=== PATIENT | female | born 1945 | race Caucasian/White ===

== ENCOUNTER 2019-11-06 12:45 | Outpatient (CLI) | payer MEDICARE, OTHER, SELFPAY ==
--- NOTE | ~2019-11-06 | MMUS_ITS ---
EXAMINATION: MM diagnostic anette BI w prem, US breast RT limited HISTORY: Right breast lump TECHNIQUE: Bilateral ML, MLO and craniocaudal 3-D tomosynthesis images were performed and synthetic 2 -D images were generated. CAD analysis was submitted and interpreted. High resolution upper outer carol drant right breast ultrasound was performed. COMPARISON: 02/27/2019 and 09/05/2018 diagnostic right digital mammogram examinations 08/20/2018, 07/06/2016 bilateral digital screening mammogram examinations BREAST PARENCHYMAL COMPOSITION: There are scattered areas of fibroglandular density. FINDINGS: MAMMOGRAPHIC FINDINGS: Bilateral benign-appearing calcifications are again noted. There is chronic stable mild fibroglandula r asymmetry. No interval suspicious mass or architectural distortion is detected. Given the clinical complaint of upper outer quadrant right breast lump, upper outer quadrant right breast ultrasound exa mination was performed. ULTRASOUND: 10:00 4 cm from nipple: There is an approximately 8 mm irregular hypoechoic apparent mass with seed buyer ior shadowing; ultrasound-guided biopsy is recommended. Immediately contiguous with or part of this 8 mm hypoechoic irregular area with shadowing is a more c ircumscribed oval heterogeneous mildly hypoechoic solid mass of approximately 12 x 16.5 mm dimension with an irregular anteriorly projecting tentacle of up to 7 mm length and 2.5 mm approximate maximal width. Ultrasound-guided biopsy of this area is recommended as well; biopsy sampling including the te ntacle is recommended. IMPRESSION: 1. Suspicious mass(es) of right breast at 10:00 4 cm from nipple 2. Ultrasound-guided biopsy of right 10:00 mass(es) is recommended BI-RADS category 4, suspicious findings. Dr. Morales telephoned Dr. Hernandez with the findings and biopsy recommendation on 11/06/2019 at 1424 hours. Reviewed, dictated and finalized at location A. IMPRESSION: 1. Suspicious mass(es) of right breast at 10:00 4 cm from nipple 2. Ultrasound-guided biopsy of right 10:00 mass(es) is recommended BI-RADS category 4, suspicious findings. Dr. Morales telephoned Dr. Hernandez with the findings and biopsy recommendation on 10/25 at 1424 hours.
== END 2019-11-06 12:46 | disposition home or self-care (01) ==
LOC: ANHIMG 12:47
PROVIDERS: PCP Family Medicine; Visit Provider Family Medicine
DX: N63.10 Unspecified lump in the right breast, unspecified quadrant (principal); R92.8 Other abnormal and inconclusive findings on diagnostic imaging of breast
CPT/HCPCS: 76642; 77062; 77066; G0279

== ENCOUNTER 2020-03-22 10:29 | Outpatient (CLI) | payer MEDICARE, OTHER, SELFPAY ==
[2020-03-22 10:43] LABS: Basophils Absolute Auto 0.1 K/mm3 (0.0-0.1); Basophils Percent Auto 0.8 % (0.2-1.2); Eosinophils Absolute Auto 0.2 K/mm3 (0-0.3); Eosinophils Percent Auto 2.1 % (0-4.4); Hematocrit 49.2 % (37.0-47.0); Immature Granulocyte Absolute 0.04 K/mm3 (0.00-0.031); Immature Granulocyte Percent A 0.5 % (0-0.5); Lymphocytes Absolute Auto 1.23 K/mm3 (0.9-3.2); Lymphocytes Percent Auto 14.5 % (18.3-44.2); Mean Corpuscular HGB Conc 32.5 g/dl (32-36); Mean Corpuscular Hemoglobin 30.9 pg (26-34); Mean Platelet Volume 11.8 fl (7.4-10.4); Monocytes Absolute Auto 0.7 K/mm3 (0.1-0.6); Monocytes Percent Auto 8.3 % (2.6-8.5); Neutrophils Absolute Auto 6.3 K/mm3 (1.3-6.7); Neutrophils Percent Auto 73.8 % (45.5-73.1); Platelet Count Result 212 k/mm3 (150-375); Red Blood Count 5.18 M/mm3 (4.2-5.4); Red Cell Distribution Width 15.7 % (11.5-14.5); White Blood Count 8.5 K/mm3 (4.5-10.0)
[2020-03-22 10:47] LABS: Blood Urea Nitrogen 26 mg/dL (8-26); Carbon Dioxide 27 mmol/L (22-30); Chloride 102 mmol/L (98-109); Estimated Glomerular Filt Rate > 60; Glucose 95 mg/dL (70-105); Potassium 4.4 mmol/L (3.5-4.9); Sodium 143 mmol/L (138-146)
[2020-03-22 11:30] LABS: Alanine Aminotransferase 17 U/L (4-35); Albumin Level 4.2 g/dL (3.5-5.1); Alkaline Phosphatase 124 U/L (38-126); Anion Gap 8 mmol/L (8-16); Aspartate Amino Transferase 32 U/L (14-36); Bilirubin,Total 1.7 mg/dL (0.2-1.3); Blood Urea Nitrogen 27 mg/dL (7-17); Calcium 9.6 mg/dL (8.4-10.2); Carbon Dioxide 34 mmol/L (22-30); Chloride 102 mmol/L (98-107); Estimated Glomerular Filt Rate > 60; Glucose 99 mg/dL (65-105); Potassium 4.3 mmol/L (3.4-5.0); Sodium 144 mmol/L (137-145)
[2020-03-28 16:08] LABS: CALR Exon 9 Mutation Not Detected (Not Detected); CSF3R Exon 14/17 Mutation Not Detected (Not Detected); JAK2 Exon 12 Mutation Not Detected (Not Detected); JAK2 V617F Mutation Not Detected (Not Detected); MPL Exon 10 Mutation Not Detected (Not Detected); Specimen Source Blood
== END 2020-03-22 10:30 | disposition home or self-care (01) ==
PROVIDERS: PCP Family Medicine; Visit Provider Internal Medicine Hematology & Oncology
DX: D75.1 Secondary polycythemia (principal); C50.411 Malignant neoplasm of upper-outer quadrant of right female breast; Z17.0 Estrogen receptor positive status [ER+]
CPT/HCPCS: 36415; 80048; 80053; 81219; 81270; 81402; 81403; 81479; 85025

== ENCOUNTER 2020-06-15 09:58 | Outpatient (CLI) | payer MEDICARE, OTHER, SELFPAY ==
[2020-06-15 10:13] LABS: Basophils Absolute Auto 0.1 K/mm3 (0.0-0.1); Basophils Percent Auto 1.2 % (0.2-1.2); Eosinophils Absolute Auto 0.3 K/mm3 (0-0.3); Eosinophils Percent Auto 3.5 % (0-4.4); Hematocrit 45.2 % (37.0-47.0); Hemoglobin 14.7 g/dL (12.0-15.0); Immature Granulocyte Absolute 0.04 K/mm3 (0.00-0.031); Immature Granulocyte Percent A 0.5 % (0-0.5); Lymphocytes Absolute Auto 1.78 K/mm3 (0.9-3.2); Lymphocytes Percent Auto 22.8 % (18.3-44.2); Mean Corpuscular HGB Conc 32.5 g/dl (32-36); Mean Corpuscular Hemoglobin 31.3 pg (26-34); Mean Corpuscular Volume 96.4 fl (80-100); Mean Platelet Volume 12.2 fl (7.4-10.4); Monocytes Absolute Auto 0.7 K/mm3 (0.1-0.6); Monocytes Percent Auto 8.8 % (2.6-8.5); Neutrophils Absolute Auto 4.9 K/mm3 (1.3-6.7); Neutrophils Percent Auto 63.2 % (45.5-73.1); Platelet Count Result 221 k/mm3 (150-375); Red Blood Count 4.69 M/mm3 (4.2-5.4); Red Cell Distribution Width 14.8 % (11.5-14.5); White Blood Count 7.8 K/mm3 (4.5-10.0)
[2020-06-15 12:32] LABS: Alanine Aminotransferase 24 U/L (4-35); Albumin Level 3.7 g/dL (3.5-5.1); Alkaline Phosphatase 101 U/L (38-126); Anion Gap 3 mmol/L (8-16); Aspartate Amino Transferase 32 U/L (14-36); Bilirubin,Total 0.8 mg/dL (0.2-1.3); Blood Urea Nitrogen 29 mg/dL (7-17); Calcium 9.3 mg/dL (8.4-10.2); Carbon Dioxide 33 mmol/L (22-30); Chloride 103 mmol/L (98-107); Estimated Glomerular Filt Rate > 60; Glucose 103 mg/dL (65-105); Potassium 4.2 mmol/L (3.4-5.0); Sodium 139 mmol/L (137-145)
[2020-06-17 05:55] LABS: CA 15-3 13 U/mL (<32)
== END 2020-06-15 09:59 | disposition home or self-care (01) ==
LOC: ANHLAB 10:00
PROVIDERS: Family Provider Family Medicine; PCP Family Medicine; Visit Provider Internal Medicine Hematology & Oncology
DX: C50.411 Malignant neoplasm of upper-outer quadrant of right female breast (principal); Z17.0 Estrogen receptor positive status [ER+]
CPT/HCPCS: 36415; 80053; 85025; 86300

== ENCOUNTER 2020-09-13 09:46 | Outpatient (CLI) | payer MEDICARE, OTHER, SELFPAY ==
[2020-09-13 10:01] LABS: Basophils Absolute Auto 0.1 K/mm3 (0.0-0.1); Basophils Percent Auto 1.2 % (0.2-1.2); Eosinophils Absolute Auto 0.3 K/mm3 (0-0.3); Hemoglobin 14.7 g/dL (12.0-15.0); Immature Granulocyte Absolute 0.02 K/mm3 (0.00-0.031); Immature Granulocyte Percent A 0.2 % (0-0.5); Lymphocytes Absolute Auto 1.83 K/mm3 (0.9-3.2); Lymphocytes Percent Auto 22.6 % (18.3-44.2); Mean Corpuscular HGB Conc 32.7 g/dl (32-36); Mean Corpuscular Hemoglobin 31.5 pg (26-34); Mean Corpuscular Volume 96.6 fl (80-100); Mean Platelet Volume 11.9 fl (7.4-10.4); Monocytes Absolute Auto 0.6 K/mm3 (0.1-0.6); Monocytes Percent Auto 7.9 % (2.6-8.5); Neutrophils Absolute Auto 5.2 K/mm3 (1.3-6.7); Neutrophils Percent Auto 64.1 % (45.5-73.1); Platelet Count Result 246 k/mm3 (150-375); Red Blood Count 4.66 M/mm3 (4.2-5.4); Red Cell Distribution Width 14.3 % (11.5-14.5); White Blood Count 8.1 K/mm3 (4.5-10.0)
[2020-09-13 12:35] LABS: Alanine Aminotransferase 22 U/L (4-35); Alkaline Phosphatase 109 U/L (38-126); Anion Gap 6 mmol/L (8-16); Aspartate Amino Transferase 33 U/L (14-36); Blood Urea Nitrogen 22 mg/dL (7-17); Calcium 9.4 mg/dL (8.4-10.2); Carbon Dioxide 34 mmol/L (22-30); Chloride 99 mmol/L (98-107); Estimated Glomerular Filt Rate > 60; Glucose 103 mg/dL (65-105); Potassium 4.1 mmol/L (3.4-5.0); Sodium 139 mmol/L (137-145)
[2020-09-17 08:02] LABS: CA 15-3 15 U/mL (<32)
== END 2020-09-13 09:47 | disposition home or self-care (01) ==
LOC: ANHLAB 09:49
PROVIDERS: PCP Family Medicine; Visit Provider Internal Medicine Hematology & Oncology
DX: C50.411 Malignant neoplasm of upper-outer quadrant of right female breast (principal); Z17.0 Estrogen receptor positive status [ER+]
CPT/HCPCS: 36415; 80053; 85025; 86300

== ENCOUNTER → 2020-12-13 10:18 | Outpatient (CLI) | payer MEDICARE, SELFPAY ==
--- NOTE | ~2020-12-13 | DEXA_ITS ---
Bone Density Report Name: Salena Zapien Age: 75 Sex: Female Ethnicity: White Date of : 1945 Indication: postmenopausal; screening for osteoporosis; parental hip fracture; height loss; cancer; Referring Provider: Ras Ivey Study: Bone densitometry was performed. Exam Date: December 13, 2020 Accession number: [id number] Bone Density: Region BMD T-score Z-score Classification AP Spine (L1-L4) 1.424 3.4 5.9 Normal Femoral Neck (Left) 0.819 -0.3 1.8 Normal Total Hip (Left) 1.065 1.0 2.8 Normal Femoral Neck (Right) 0.867 0.2 2.3 Normal Total Hip (Right) 1.051 0.9 2.7 Normal Total Hip Mean 1.058 1.0 2.8 Normal World Health Organization criteria for BMD impression classify patients as: Normal (T-score at or above -1.0), Osteopenia (T-score between -1.0 and -2.5), or Osteoporosis (T-score at or below -2.5). 10-year Fracture Risk: FRAX not reported because: All T-scores for Spine Total, Hip Total, Femoral Neck at or above -1.0 Previous Exams: Region Exam Age BMD T-score BMD Change BMD Change Date g/cm2 vs Baseline vs Previous AP Spine(L1-L4) 12/13/2020 75 1.424 3.4 0.135* 0.015 07/06/2016 71 1.409 3.3 0.120* 0.102 12/12/2007 62 1.306 2.4 0.018 0.018 07/31/2004 59 1.289 2.2 Total Hip(Left) 12/13/2020 75 1.065 1.0 -0.142* 0.013 07/06/2016 71 1.052 0.9 -0.155* 0.003 12/12/2007 62 1.049 0.9 -0.158 -0.158 07/31/2004 59 1.207 2.2 Total Hip(Right) 12/13/2020 75 1.051 0.9 -0.080* -0.029* 07/06/2016 71 1.080 1.1 -0.051* 0.011 12/12/2007 62 1.069 1.0 -0.062 -0.062 07/31/2004 59 1.131 1.5 *Denotes significance at 95% confidence level, LSC for AP Spine = 0.022 g/cm2, LSC for Total Hip = 0.027 g/cm2 Clinical Information Provided by Patient: Parent has had a hip fracture Has used the following medications: Calcium, arimidex Has the following medical conditions: Cancer Patient maximum height was 62.25 Menopause Age: 51 Drinks caffeinated beverages Onset of menses at age 13 Number of children 1 Impression: The patient has normal bone mass. The patient has risk factors, including: parental hip fracture. The BMD for the Total Hip(Right) decreased, changing by -0.029 since the last DXA exam. Discussion: BONE DENSITY IS
== END ==
PROVIDERS: PCP Family Medicine; Visit Provider Internal Medicine Hematology & Oncology
DX: M85.89 Other specified disorders of bone density and structure, multiple sites (principal)
CPT/HCPCS: 77080

== ENCOUNTER 2020-12-14 09:20 | Outpatient (CLI) | payer MEDICARE, OTHER, SELFPAY ==
[2020-12-14 09:42] LABS: Basophils Absolute Auto 0.1 K/mm3 (0.0-0.1); Eosinophils Absolute Auto 0.2 K/mm3 (0-0.3); Eosinophils Percent Auto 3.1 % (0-4.4); Hematocrit 44.5 % (37.0-47.0); Hemoglobin 14.3 g/dL (12.0-15.0); Immature Granulocyte Absolute 0.03 K/mm3 (0.00-0.031); Immature Granulocyte Percent A 0.4 % (0-0.5); Lymphocytes Absolute Auto 1.67 K/mm3 (0.9-3.2); Lymphocytes Percent Auto 21.8 % (18.3-44.2); Mean Corpuscular HGB Conc 32.1 g/dl (32-36); Mean Corpuscular Hemoglobin 30.7 pg (26-34); Mean Corpuscular Volume 95.5 fl (80-100); Mean Platelet Volume 12.1 fl (7.4-10.4); Monocytes Absolute Auto 0.6 K/mm3 (0.1-0.6); Monocytes Percent Auto 8.3 % (2.6-8.5); Neutrophils Percent Auto 65.4 % (45.5-73.1); Platelet Count Result 246 k/mm3 (150-375); Red Blood Count 4.66 M/mm3 (4.2-5.4); Red Cell Distribution Width 14.4 % (11.5-14.5); White Blood Count 7.7 K/mm3 (4.5-10.0)
[2020-12-14 11:54] LABS: Alanine Aminotransferase 18 U/L (4-35); Albumin Level 3.7 g/dL (3.5-5.1); Alkaline Phosphatase 100 U/L (38-126); Anion Gap 8 mmol/L (8-16); Aspartate Amino Transferase 28 U/L (14-36); Bilirubin,Total 0.8 mg/dL (0.2-1.3); Blood Urea Nitrogen 20 mg/dL (7-17); Calcium 9.6 mg/dL (8.4-10.2); Carbon Dioxide 30 mmol/L (22-30); Chloride 102 mmol/L (98-107); Estimated Glomerular Filt Rate > 60; Glucose 100 mg/dL (65-110); Potassium 4.3 mmol/L (3.4-5.0); Sodium 140 mmol/L (137-145)
[2020-12-19 21:15] LABS: CA 15-3 16 U/mL (<32)
== END 2020-12-14 09:21 | disposition home or self-care (01) ==
LOC: ANHLAB 09:26
PROVIDERS: PCP Family Medicine; Visit Provider Internal Medicine Hematology & Oncology
DX: C50.411 Malignant neoplasm of upper-outer quadrant of right female breast (principal); Z17.0 Estrogen receptor positive status [ER+]
CPT/HCPCS: 36415; 80053; 85025; 86300

== ENCOUNTER 2021-04-11 09:11 | Outpatient (CLI) | payer MEDICARE, OTHER, SELFPAY ==
[2021-04-11 09:37] LABS: Basophils Absolute Auto 0.1 K/mm3 (0.0-0.1); Eosinophils Absolute Auto 0.3 K/mm3 (0-0.3); Eosinophils Percent Auto 3.8 % (0-4.4); Hemoglobin 14.5 g/dL (12.0-15.0); Immature Granulocyte Absolute 0.01 K/mm3 (0.00-0.031); Immature Granulocyte Percent A 0.1 % (0-0.5); Lymphocytes Absolute Auto 1.66 K/mm3 (0.9-3.2); Mean Corpuscular HGB Conc 32.2 g/dl (32-36); Mean Corpuscular Hemoglobin 30.7 pg (26-34); Mean Corpuscular Volume 95.1 fl (80-100); Mean Platelet Volume 11.9 fl (7.4-10.4); Monocytes Absolute Auto 0.5 K/mm3 (0.1-0.6); Monocytes Percent Auto 7.5 % (2.6-8.5); Neutrophils Absolute Auto 4.4 K/mm3 (1.3-6.7); Neutrophils Percent Auto 63.6 % (45.5-73.1); Platelet Count Result 252 k/mm3 (150-375); Red Blood Count 4.73 M/mm3 (4.2-5.4); White Blood Count 6.9 K/mm3 (4.5-10.0)
[2021-04-11 12:33] LABS: Digoxin 0.5 ng/mL (0.8-2.0)
[2021-04-11 12:36] LABS: Cholesterol 177 mg/dL (0-200); HDL Direct 36 mg/dL; Triglycerides 125 mg/dL (<150)
[2021-04-11 12:37] LABS: Hemoglobin A1C 5.6 % (<5.7)
[2021-04-11 12:41] LABS: Alanine Aminotransferase 18 U/L (4-35); Albumin Level 4.1 g/dL (3.5-5.1); Alkaline Phosphatase 108 U/L (38-126); Anion Gap 8 mmol/L (8-16); Aspartate Amino Transferase 30 U/L (14-36); Bilirubin,Total 0.8 mg/dL (0.2-1.3); Blood Urea Nitrogen 18 mg/dL (7-17); Calcium 9.8 mg/dL (8.4-10.2); Carbon Dioxide 29 mmol/L (22-30); Chloride 99 mmol/L (98-107); Estimated Glomerular Filt Rate > 60; Glucose 95 mg/dL (65-110); Potassium 3.8 mmol/L (3.4-5.0); Sodium 136 mmol/L (137-145)
[2021-04-11 12:48] LABS: LDL Cholesterol Direct 114 mg/dL; Vitamin D 25 Hydroxy 25.3 ng/mL
[2021-04-14 16:11] LABS: CA 15-3 16 U/mL (<32)
== END 2021-04-11 09:12 | disposition home or self-care (01) ==
LOC: ANHLAB 09:13
PROVIDERS: PCP Family Medicine; Referring Provider Internal Medicine Hematology & Oncology; Visit Provider Family Medicine
DX: E11.9 Type 2 diabetes mellitus without complications (principal); I48.0 Paroxysmal atrial fibrillation; Z79.899 Other long term (current) drug therapy; E78.2 Mixed hyperlipidemia; E03.9 Hypothyroidism, unspecified; E55.9 Vitamin D deficiency, unspecified; C50.411 Malignant neoplasm of upper-outer quadrant of right female breast; Z17.0 Estrogen receptor positive status [ER+]
CPT/HCPCS: 36415; 80053; 80061; 80162; 82306; 83036; 84443; 85025; 86300

== ENCOUNTER → 2021-06-05 10:50 | Outpatient (CLI) | payer MEDICARE, SELFPAY ==
--- NOTE | ~2021-06-05 | XR_ITS ---
EXAMINATION: XR lumbar spine min 4V DATE: 06/05/2021 11:40 INDICATION: Low back pain, unspecified. TECHNIQUE: 5 views of lumbar spine were obtained. COMPARISON: None. FINDINGS: There is 7 degrees dextrocurvature of lumbar spine. Vertebral body heights are normal. Ther e is mildly decreased disc height at L1-L2, severely decreased disc height at L2-L3, mildly decreased disc height at L3-L4, severely decreased disc height at L4-L5, and mildly decreased disc at L5-S1 wi th endplate remodeling. There is severe facet joint osteoarthritis in lower lumbar spine. IMPRESSION: 1. Severe lumbar spondylosis. Reviewed, dictated and finalized at location B. [employer]
== END ==
PROVIDERS: Visit Provider Family Medicine
DX: M47.896 Other spondylosis, lumbar region (principal)
CPT/HCPCS: 72110

== ENCOUNTER 2021-08-04 11:27 | Outpatient (CLI) | payer MEDICARE, OTHER, SELFPAY ==
[2021-08-04 11:41] LABS: Basophils Absolute Auto 0.1 K/mm3 (0.0-0.1); Basophils Percent Auto 1.2 % (0.2-1.2); Eosinophils Absolute Auto 0.3 K/mm3 (0-0.3); Eosinophils Percent Auto 3.5 % (0-4.4); Hematocrit 46.2 % (37.0-47.0); Hemoglobin 14.4 g/dL (12.0-15.0); Immature Granulocyte Absolute 0.03 K/mm3 (0.00-0.031); Immature Granulocyte Percent A 0.4 % (0-0.5); Lymphocytes Absolute Auto 2.16 K/mm3 (0.9-3.2); Lymphocytes Percent Auto 28.3 % (18.3-44.2); Mean Corpuscular HGB Conc 31.2 g/dl (32-36); Mean Corpuscular Volume 99.6 fl (80-100); Mean Platelet Volume 11.7 fl (7.4-10.4); Monocytes Absolute Auto 0.7 K/mm3 (0.1-0.6); Monocytes Percent Auto 8.5 % (2.6-8.5); Neutrophils Absolute Auto 4.4 K/mm3 (1.3-6.7); Neutrophils Percent Auto 58.1 % (45.5-73.1); Platelet Count Result 273 k/mm3 (150-375); Red Blood Count 4.64 M/mm3 (4.2-5.4); Red Cell Distribution Width 14.7 % (11.5-14.5); White Blood Count 7.6 K/mm3 (4.5-10.0)
[2021-08-04 12:22] LABS: Alanine Aminotransferase 20 U/L (4-35); Albumin Level 4.1 g/dL (3.5-5.1); Alkaline Phosphatase 128 U/L (38-126); Anion Gap 7 mmol/L (8-16); Aspartate Amino Transferase 32 U/L (14-36); Bilirubin,Total 0.7 mg/dL (0.2-1.3); Blood Urea Nitrogen 21 mg/dL (7-17); Calcium 9.5 mg/dL (8.4-10.2); Carbon Dioxide 30 mmol/L (22-30); Chloride 101 mmol/L (98-107); Estimated Glomerular Filt Rate > 60; Glucose 103 mg/dL (65-110); Potassium 4.3 mmol/L (3.4-5.0); Sodium 138 mmol/L (137-145)
[2021-08-08 20:11] LABS: CA 15-3 16 U/mL (<32)
== END 2021-08-04 11:28 | disposition home or self-care (01) ==
LOC: ANHLAB 11:29
PROVIDERS: Visit Provider Internal Medicine Hematology & Oncology
DX: C50.411 Malignant neoplasm of upper-outer quadrant of right female breast (principal); Z17.0 Estrogen receptor positive status [ER+]
CPT/HCPCS: 36415; 80053; 85025; 86300

== ENCOUNTER 2021-12-07 09:50 | Outpatient (CLI) | payer MEDICARE, OTHER, SELFPAY ==
[2021-12-07 10:06] LABS: Basophils Absolute Auto 0.1 K/mm3 (0.0-0.1); Eosinophils Absolute Auto 0.3 K/mm3 (0-0.3); Eosinophils Percent Auto 3.6 % (0-4.4); Hematocrit 41.8 % (37.0-47.0); Hemoglobin 13.3 g/dL (12.0-15.0); Immature Granulocyte Absolute 0.03 K/mm3 (0.00-0.031); Immature Granulocyte Percent A 0.4 % (0-0.5); Lymphocytes Absolute Auto 1.66 K/mm3 (0.9-3.2); Mean Corpuscular HGB Conc 31.8 g/dl (32-36); Mean Corpuscular Hemoglobin 30.8 pg (26-34); Mean Corpuscular Volume 96.8 fl (80-100); Mean Platelet Volume 11.3 fl (7.4-10.4); Monocytes Absolute Auto 0.6 K/mm3 (0.1-0.6); Monocytes Percent Auto 7.6 % (2.6-8.5); Neutrophils Absolute Auto 4.7 K/mm3 (1.3-6.7); Neutrophils Percent Auto 64.4 % (45.5-73.1); Platelet Count Result 228 k/mm3 (150-375); Red Blood Count 4.32 M/mm3 (4.2-5.4); Red Cell Distribution Width 14.3 % (11.5-14.5); White Blood Count 7.2 K/mm3 (4.5-10.0)
[2021-12-07 15:32] LABS: Alanine Aminotransferase 26 U/L (6-35); Albumin Level 3.9 g/dL (3.5-5.1); Alkaline Phosphatase 122 U/L (38-126); Anion Gap 5 mmol/L (8-16); Aspartate Amino Transferase 32 U/L (14-36); Bilirubin,Total 0.5 mg/dL (0.2-1.3); Blood Urea Nitrogen 15 mg/dL (7-17); Calcium 8.9 mg/dL (8.4-10.2); Carbon Dioxide 31 mmol/L (22-30); Chloride 103 mmol/L (98-107); Estimated Glomerular Filt Rate > 60; Glucose 96 mg/dL (65-110); Potassium 4.4 mmol/L (3.4-5.0); Sodium 139 mmol/L (137-145)
[2021-12-13 04:53] LABS: CA 15-3 18 U/mL (<32)
== END 2021-12-07 09:51 | disposition home or self-care (01) ==
LOC: ANHLAB 09:52
PROVIDERS: Visit Provider Internal Medicine Hematology & Oncology
DX: C50.411 Malignant neoplasm of upper-outer quadrant of right female breast (principal); Z17.0 Estrogen receptor positive status [ER+]
CPT/HCPCS: 36415; 80053; 85025; 86300

== ENCOUNTER 2022-04-04 11:30 | Outpatient (CLI) | payer MEDICARE, OTHER, SELFPAY ==
[2022-04-04 11:47] LABS: Basophils Absolute Auto 0.1 K/mm3 (0.0-0.1); Basophils Percent Auto 0.9 % (0.2-1.2); Eosinophils Absolute Auto 0.1 K/mm3 (0-0.3); Eosinophils Percent Auto 1.3 % (0-4.4); Hematocrit 42.9 % (37.0-47.0); Immature Granulocyte Absolute 0.04 K/mm3 (0.00-0.031); Immature Granulocyte Percent A 0.4 % (0-0.5); Lymphocytes Percent Auto 13.9 % (18.3-44.2); Mean Corpuscular HGB Conc 32.6 g/dl (32-36); Mean Corpuscular Hemoglobin 30.5 pg (26-34); Mean Corpuscular Volume 93.5 fl (80-100); Mean Platelet Volume 10.8 fl (7.4-10.4); Monocytes Absolute Auto 0.9 K/mm3 (0.1-0.6); Monocytes Percent Auto 9.4 % (2.6-8.5); Neutrophils Percent Auto 74.1 % (45.5-73.1); Platelet Count Result 384 k/mm3 (150-375); Red Blood Count 4.59 M/mm3 (4.2-5.4); White Blood Count 9.4 K/mm3 (4.5-10.0)
[2022-04-04 14:53] LABS: Alanine Aminotransferase 20 U/L (6-35); Alkaline Phosphatase 120 U/L (38-126); Anion Gap 15 mmol/L (8-16); Aspartate Amino Transferase 29 U/L (14-36); Bilirubin,Total 0.6 mg/dL (0.2-1.3); Blood Urea Nitrogen 15 mg/dL (7-17); Calcium 8.9 mg/dL (8.4-10.2); Carbon Dioxide 30 mmol/L (22-30); Chloride 95 mmol/L (98-107); Estimated Glomerular Filt Rate > 60; Glucose 93 mg/dL (65-110); Potassium 3.9 mmol/L (3.4-5.0); Sodium 140 mmol/L (137-145)
[2022-04-08 14:36] LABS: CA 15-3 13 U/mL (<32)
== END 2022-04-04 11:31 | disposition home or self-care (01) ==
LOC: ANHLAB 11:31
PROVIDERS: PCP Family Medicine; Visit Provider Internal Medicine Hematology & Oncology
DX: C50.411 Malignant neoplasm of upper-outer quadrant of right female breast (principal); Z17.0 Estrogen receptor positive status [ER+]
CPT/HCPCS: 36415; 80053; 85025; 86300

== ENCOUNTER 2022-08-01 11:34 | Outpatient (CLI) | payer MEDICARE, OTHER, SELFPAY ==
[2022-08-01 11:51] LABS: Basophils Absolute Auto 0.1 K/mm3 (0.0-0.1); Basophils Percent Auto 1.3 % (0.2-1.2); Eosinophils Absolute Auto 0.2 K/mm3 (0-0.3); Eosinophils Percent Auto 2.4 % (0-4.4); Hematocrit 44.3 % (37.0-47.0); Hemoglobin 14.3 g/dL (12.0-15.0); Immature Granulocyte Absolute 0.02 K/mm3 (0.00-0.031); Immature Granulocyte Percent A 0.3 % (0-0.5); Lymphocytes Absolute Auto 2.22 K/mm3 (0.9-3.2); Lymphocytes Percent Auto 29.6 % (18.3-44.2); Mean Corpuscular HGB Conc 32.3 g/dl (32-36); Mean Corpuscular Hemoglobin 30.8 pg (26-34); Mean Corpuscular Volume 95.3 fl (80-100); Mean Platelet Volume 11.5 fl (7.4-10.4); Monocytes Absolute Auto 0.6 K/mm3 (0.1-0.6); Monocytes Percent Auto 8.1 % (2.6-8.5); Neutrophils Absolute Auto 4.4 K/mm3 (1.3-6.7); Neutrophils Percent Auto 58.3 % (45.5-73.1); Platelet Count Result 283 k/mm3 (150-375); Red Blood Count 4.65 M/mm3 (4.2-5.4); Red Cell Distribution Width 14.6 % (11.5-14.5); White Blood Count 7.5 K/mm3 (4.5-10.0)
[2022-08-01 13:36] LABS: Alanine Aminotransferase 19 U/L (6-35); Albumin Level 4.3 g/dL (3.5-5.1); Alkaline Phosphatase 97 U/L (38-126); Anion Gap 4 mmol/L (8-16); Aspartate Amino Transferase 32 U/L (14-36); Bilirubin,Total 0.7 mg/dL (0.2-1.3); Blood Urea Nitrogen 23 mg/dL (7-17); Calcium 9.7 mg/dL (8.4-10.2); Carbon Dioxide 32 mmol/L (22-30); Chloride 99 mmol/L (98-107); Estimated Glomerular Filt Rate > 60; Glucose 103 mg/dL (65-110); Potassium 4.1 mmol/L (3.4-5.0); Sodium 135 mmol/L (137-145)
[2022-08-04 04:14] LABS: CA 15-3 17 U/mL (<32)
== END 2022-08-01 11:35 | disposition home or self-care (01) ==
LOC: ANHLAB 11:36
PROVIDERS: PCP Family Medicine; Visit Provider Internal Medicine Hematology & Oncology
DX: C50.411 Malignant neoplasm of upper-outer quadrant of right female breast (principal); Z17.0 Estrogen receptor positive status [ER+]
CPT/HCPCS: 36415; 80053; 85025; 86300

== ENCOUNTER 2022-10-13 07:47 | Emergency (ER) | payer MEDICARE, OTHER, SELFPAY ==
--- NOTE | ~2022-10-13 | US_ITS ---
EXAMINATION: US pelvic complete w TV DATE: 10/13/2022 09:50 INDICATION: Postmenopausal bleeding TECHNIQUE: Multiple transabdominal and endovaginal sonographic images of the pelvis were obtained. COMPARISON: None. FINDINGS: The uterus measures 7.8 x 4.8 x 3.9 cm. There appears to be a 4.4 x 3.8 cm mass of the endo metrial cavity. The endometrial complex is not well demonstrated. The ovaries are not visualized carlos idris no adnexal abnormality is seen. There is no free fluid in the pelvis. IMPRESSION: 1. Probable mass of the endometrial complex which could reflect fibroid, polyp, or malignancy. Endome trial sampling is recommended. Reviewed, dictated and finalized at location A. IMPRESSION: 1. Probable mass of the endometrial complex which could reflect fibroid, polyp, or malignancy. Endometrial sampling is recommended.
[2022-10-13 07:51] VITALS: BP 146/95; PULSE 77; RESP 16; O2SAT 99
--- NOTE | 2022-10-13 07:57 | ED.FEMALEGU ---
HPI - Female Genitourinary General Chief complaint: Vaginal Bleeding Stated complaint: blood in depends Time Seen by Provider: 10/13/22 07:57 Source: patient Mode of arrival: ambulatory Limitations: no limitations History of Present Illness HPI Narrative: 77 years old white female drove herself to the ED from home because of fresh red bright blood on her pad noticed this morning. Unknown source of bleeding. Patient is asymptomatic. History of breast cancer 3 years ago, status post right lumpectomy and radiation therapy. Currently on Anstrozole. History of A-fib on Xarelto. Patient denies history of GI bleed or vaginal bleed or urinary bleed. Related Data Home Medications Medication Instructions Recorded Confirmed digoxin 125 mcg (0.125 mg) tablet 125 mcg PO DAILY 06/15/19 05/02/21 (Digox) anastrozole 1 mg tablet 1 mg PO DAILY 04/29/20 05/02/21 Allergies Allergy/AdvReac Type Severity Reaction Status Date / Time No Known Allergies Allergy Verified 10/13/22 07:54 Review of Systems Review of Systems: All systems reviewed & are unremarkable except as noted in HPI and below PMFSH Past Medical History Medical History Arthritis Atrial fibrillation with RVR Hypothyroidism Morbid obesity Osteoarthritis Paroxysmal atrial fibrillation Prediabetes Surgical History Surgical History History of bilateral knee replacement Left was replaced in 2009, right in 2011. History of cholecystectomy History of lumpectomy of right breast Dec 2019 biopsy confirmed Stage1 mucinous carcinoma Family History Family History Mother Family history of rheumatoid arthritis, Onset Age: 71 Father Carcinoma of colon Other Breast cancer, Onset Age: 46 niece Social History Social History Social History: Mrs. Zapien is and lives in her own home in [place], [place]. She lives in a duplex, and her brother and oowkmn-sg-gar live next door. She is retired from working in customer service. She designates her daughter, Hanna Lopez, as her surrogate decision maker and she wishes to be a full code. She is a lifelong nonsmoker and denies alcohol and drug abuse. Smoking status: Never smoker Second hand tobacco smoke exposure: No Alcohol intake: never Substance use: never Substance use type: does not use Gender identity (if verbalized by the patient): Female Spiritual care concerns: No Exam Narrative: General appearance: Well-developed, well-nourished Skin: Normal color Head: Normocephalic, nontraumatic Eyes: Clear conjunctiva ENT: Oropharynx normal, ears normal, nose normal Neck: Supple, nontender Chest and respiratory: Airway patent, no respiratory distress, no accessory muscle use Heart: Regular rate/rhythm Abdomen: Soft, nontender, no organomegaly, quiet bowel sounds Pelvic exam showed no abnormality externally, trace of blood at the cervix area, no active bleeding. Normal vaginal pouch. No adnexal tenderness. Vascular: Normal peripheral pulses, normal capillary refill. 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 Martínez, outpatient follow Date: 10/13/22 Time: 12:13 Vital Signs Vital signs: Vital Signs Pulse Rate 77 10/13/22 07:51 Respiratory Rate 16 10/13/22 07:51 Blood Pressure 146/95 H 10/13/22 07:51 Pulse Oximetry 99 0
[2022-10-13 08:40] LABS: Basophils Absolute Auto 0.1 K/mm3 (0.0-0.1); Basophils Percent Auto 0.9 % (0.2-1.2); Eosinophils Absolute Auto 0.2 K/mm3 (0-0.3); Eosinophils Percent Auto 2.8 % (0-4.4); Hematocrit 41.8 % (37.0-47.0); Hemoglobin 13.6 g/dL (12.0-15.0); Immature Granulocyte Absolute 0.02 K/mm3 (0.00-0.031); Immature Granulocyte Percent A 0.3 % (0-0.5); Lymphocytes Absolute Auto 1.93 K/mm3 (0.9-3.2); Mean Corpuscular HGB Conc 32.5 g/dl (32-36); Mean Corpuscular Hemoglobin 30.6 pg (26-34); Mean Corpuscular Volume 93.9 fl (80-100); Monocytes Absolute Auto 0.6 K/mm3 (0.1-0.6); Monocytes Percent Auto 8.2 % (2.6-8.5); Neutrophils Absolute Auto 4.6 K/mm3 (1.3-6.7); Neutrophils Percent Auto 61.8 % (45.5-73.1); Platelet Count Result 255 k/mm3 (150-375); Red Blood Count 4.45 M/mm3 (4.2-5.4); Red Cell Distribution Width 15.1 % (11.5-14.5); White Blood Count 7.4 K/mm3 (4.5-10.0)
[2022-10-13 08:51] LABS: Alanine Aminotransferase 20 U/L (6-35); Albumin Level 3.8 g/dL (3.5-5.1); Alkaline Phosphatase 103 U/L (38-126); Anion Gap 7 mmol/L (8-16); Aspartate Amino Transferase 30 U/L (14-36); Bilirubin,Total 0.9 mg/dL (0.2-1.3); Blood Urea Nitrogen 18 mg/dL (7-17); Calcium 9.1 mg/dL (8.4-10.2); Carbon Dioxide 30 mmol/L (22-30); Chloride 101 mmol/L (98-107); Estimated CRCL calculation 70 ml/min; Estimated Glomerular Filt Rate > 60; Glucose 109 mg/dL (65-110); Potassium 3.7 mmol/L (3.4-5.0); Sodium 138 mmol/L (137-145)
[2022-10-13 08:52] LABS: INR 1.6; Prothrombin Time 20.6 Seconds (11.1-14.7)
[2022-10-13 08:53] LABS: Partial Thromboplastin Time 43.2 SECONDS (22.3-36.8)
[2022-10-13 09:08] LABS: Appearance Urine Cloudy (Clear); Bilirubin Urine Negative (Negative); Blood Urine 3+ (Negative); Color Urine Dark Yellow (Yellow); Glucose Urine UA Negative (Negative); Ketones Urine Negative (Negative); Leukocyte Esterase Ur 2+ LEU/UL (Negative); Nitrate Urine Negative (Negative); Protein Urine 1+ mg/dL (Negative); Specific Grav Ur 1.023 (1.001-1.035); pH Urine 5.5 (5.0-9.0)
[2022-10-13 09:29] LABS: Add Urine Microscopic? YES
[2022-10-13 09:30] LABS: Bacteria Urine Noted /hpf; Squamous Epithelial Cell Urine Few /hpf (Few)
[2022-10-13 09:31] LABS: Mucus Urine Few /lpf
[2022-10-13] MEDS: FUROSEMIDE 20 MG TABLET PO (10:06)
[2022-10-13 10:07] VITALS: PULSE 74; PULSE 76
[2022-10-13] MEDS: METOPROLOL SUCCINATE EXT REL 50 MG TABCR PO (10:07)
[2022-10-13] MEDS: DIGOXIN TAB 125 MCG TABLET PO (10:07)
[2022-10-13 11:11] VITALS: BP 120/62; PULSE 62; RESP 17; O2SAT 97
[2022-10-13 12:25] VITALS: BP 142/75; PULSE 70; RESP 18; O2SAT 99
== END 2022-10-13 12:27 | disposition home or self-care (01) ==
PROVIDERS: Emergency Provider Emergency Medicine; PCP Family Medicine
DX: N95.0 Postmenopausal bleeding (principal); N39.0 Urinary tract infection, site not specified; I48.0 Paroxysmal atrial fibrillation; E03.9 Hypothyroidism, unspecified; R73.03 Prediabetes; E66.01 Morbid (severe) obesity due to excess calories; Z68.36 Body mass index [BMI] 36.0-36.9, adult; M19.90 Unspecified osteoarthritis, unspecified site; Z96.653 Presence of artificial knee joint, bilateral; Z85.3 Personal history of malignant neoplasm of breast; Z92.3 Personal history of irradiation; Z90.49 Acquired absence of other specified parts of digestive tract; Z79.01 Long term (current) use of anticoagulants; R93.89 Abnormal findings on diagnostic imaging of other specified body structures
CPT/HCPCS: 36415; 76830; 76856; 80053; 81001; 85025; 85610; 85730; 99284; A9270

== ENCOUNTER 2022-12-06 10:24 | Outpatient (CLI) | payer MEDICARE, OTHER, SELFPAY ==
[2022-12-06 10:42] LABS: Hematocrit 40.6 % (37.0-47.0); Mean Corpuscular Hemoglobin 30.7 pg (26-34); Mean Platelet Volume 11.5 fl (7.4-10.4); Platelet Count Result 251 k/mm3 (150-375); Red Blood Count 4.23 M/mm3 (4.2-5.4); Red Cell Distribution Width 14.9 % (11.5-14.5); White Blood Count 8.7 K/mm3 (4.5-10.0)
[2022-12-06 10:43] LABS: Basophils Absolute Auto 0.1 K/mm3 (0.0-0.1); Basophils Percent Auto 0.9 % (0.2-1.2); Eosinophils Absolute Auto 0.2 K/mm3 (0-0.3); Eosinophils Percent Auto 1.8 % (0-4.4); Immature Granulocyte Absolute 0.02 K/mm3 (0.00-0.031); Immature Granulocyte Percent A 0.2 % (0-0.5); Lymphocytes Absolute Auto 1.85 K/mm3 (0.9-3.2); Lymphocytes Percent Auto 21.3 % (18.3-44.2); Monocytes Absolute Auto 0.7 K/mm3 (0.1-0.6); Monocytes Percent Auto 8.5 % (2.6-8.5); Neutrophils Absolute Auto 5.8 K/mm3 (1.3-6.7); Neutrophils Percent Auto 67.3 % (45.5-73.1)
[2022-12-06 12:43] LABS: Cholesterol 176 mg/dL (0-200); HDL Direct 39 mg/dL; Triglycerides 123 mg/dL (<150)
[2022-12-06 12:45] LABS: Alanine Aminotransferase 22 U/L (6-35); Alkaline Phosphatase 102 U/L (38-126); Anion Gap 1 mmol/L (8-16); Aspartate Amino Transferase 33 U/L (14-36); Bilirubin,Total 0.7 mg/dL (0.2-1.3); Blood Urea Nitrogen 19 mg/dL (7-17); Calcium 9.2 mg/dL (8.4-10.2); Carbon Dioxide 34 mmol/L (22-30); Chloride 100 mmol/L (98-107); Estimated Glomerular Filt Rate > 60; Glucose 103 mg/dL (65-110); Potassium 4.2 mmol/L (3.4-5.0); Sodium 135 mmol/L (137-145)
[2022-12-06 12:53] LABS: LDL Cholesterol Direct 96 mg/dL
[2022-12-06 12:59] LABS: Vitamin D 25 Hydroxy 42.2 ng/mL
[2022-12-06 13:05] LABS: Hemoglobin A1C 5.5 % (<5.7)
[2022-12-11 13:40] LABS: CA 15-3 18 U/mL (<32)
== END 2022-12-06 10:25 | disposition home or self-care (01) ==
LOC: ANHLAB 10:27
PROVIDERS: PCP Family Medicine; Visit Provider Internal Medicine Hematology & Oncology
DX: E55.9 Vitamin D deficiency, unspecified (principal); E78.2 Mixed hyperlipidemia; R73.9 Hyperglycemia, unspecified; E03.9 Hypothyroidism, unspecified; C50.411 Malignant neoplasm of upper-outer quadrant of right female breast; Z17.0 Estrogen receptor positive status [ER+]
CPT/HCPCS: 36415; 80053; 80061; 82306; 83036; 84443; 85025; 86300

== ENCOUNTER 2022-12-10 08:51 | Outpatient (CLI) | payer MEDICARE, OTHER, SELFPAY ==
--- NOTE | ~2022-12-10 | DEXA_ITS ---
Bone Density Report Name: ROJELIO BLACKBURN Age: 77 Sex: Female Ethnicity: White Date of : 1945 Indication: postmenopausal; screening for osteoporosis; parental hip fracture; height loss; cancer; Referring Provider: BARB MONTALVO Study: Bone densitometry was performed. Exam Date: December 10, 2022 Accession number: [id number] Bone Density: Region BMD T-score Z-score Classification AP Spine(L1-L4) 1.347 2.7 5.3 Normal Femoral Neck (Left) 0.788 -0.5 1.6 Normal Total Hip (Left) 1.011 0.6 2.5 Normal Femoral Neck (Right) 0.818 -0.3 1.9 Normal Total Hip (Right) 0.924 -0.1 1.8 Normal Total Hip Mean 0.968 0.3 2.2 Normal World Health Organization criteria for BMD impression classify patients as: Normal (T-score at or above -1.0), Osteopenia (T-score between -1.0 and -2.5), or Osteoporosis (T-score at or below -2.5). 10-year Fracture Risk: FRAX not reported because: All T-scores for Spine Total, Hip Total, Femoral Neck at or above -1.0 Clinical Information Provided by Patient: Parent has had a hip fracture Has used the following medications: Calcium Has the following medical conditions: Cancer Patient maximum height was 62.0 Menopause Age: 51 Drinks caffeinated beverages Onset of menses at age 13 Number of children 1 Impression: The patient has normal bone mass. The patient has risk factors, including: parental hip fracture. Discussion: BONE DENSITY IS ABOVE THE MINIMUM DESIRABLE LEVEL AT ALL SKELETAL SITES TESTED. This patient?s bone mineral density is above the minimum desirable level (T-score -1.0 or better) at all sites measured. The patient should follow a healthful lifestyle (good nutrition with adequate calcium and vitamin D, and appropriate weight-bearing exercise). Follow-Up: Consider repeating this study in 5 years or sooner if there is some new clinical indication. Reported by: RUBEN on 12/10/2022 2:26:00 PM. Reviewed, dictated and finalized at location A. [facility]
== END 2022-12-10 08:52 | disposition home or self-care (01) ==
LOC: ANHIMG 08:53
PROVIDERS: PCP Family Medicine; Visit Provider Internal Medicine Hematology & Oncology
DX: M85.89 Other specified disorders of bone density and structure, multiple sites (principal)
CPT/HCPCS: 77080

== ENCOUNTER 2023-06-24 10:39 | Outpatient (CLI) | payer MEDICARE, OTHER, SELFPAY ==
[2023-06-24 11:35] LABS: Basophils Absolute Auto 0.1 K/mm3 (0.0-0.1); Basophils Percent Auto 1.1 % (0.2-1.2); Eosinophils Absolute Auto 0.2 K/mm3 (0-0.3); Eosinophils Percent Auto 3.1 % (0-4.4); Hematocrit 40.5 % (37.0-47.0); Hemoglobin 13.1 g/dL (12.0-15.0); Immature Granulocyte Absolute 0.02 K/mm3 (0.00-0.031); Immature Granulocyte Percent A 0.3 % (0-0.5); Lymphocytes Absolute Auto 0.73 K/mm3 (0.9-3.2); Lymphocytes Percent Auto 11.4 % (18.3-44.2); Mean Corpuscular HGB Conc 32.3 g/dl (32-36); Mean Corpuscular Hemoglobin 31.2 pg (26-34); Mean Corpuscular Volume 96.4 fl (80-100); Mean Platelet Volume 10.9 fl (7.4-10.4); Monocytes Absolute Auto 0.5 K/mm3 (0.1-0.6); Monocytes Percent Auto 8.2 % (2.6-8.5); Neutrophils Absolute Auto 4.9 K/mm3 (1.3-6.7); Neutrophils Percent Auto 75.9 % (45.5-73.1); Platelet Count Result 251 k/mm3 (150-375); Red Cell Distribution Width 14.7 % (11.5-14.5); White Blood Count 6.4 K/mm3 (4.5-10.0)
[2023-06-24 13:56] LABS: Alanine Aminotransferase 17 U/L (6-35); Albumin Level 3.9 g/dL (3.5-5.1); Alkaline Phosphatase 94 U/L (38-126); Anion Gap 5 mmol/L (8-16); Aspartate Amino Transferase 28 U/L (14-36); Bilirubin,Total 0.8 mg/dL (0.2-1.3); Blood Urea Nitrogen 17 mg/dL (7-17); Calcium 9.6 mg/dL (8.4-10.2); Carbon Dioxide 33 mmol/L (22-30); Chloride 99 mmol/L (98-107); Cholesterol 185 mg/dL (0-200); Estimated Glomerular Filt Rate > 60; Glucose 91 mg/dL (65-110); HDL Direct 37 mg/dL; Sodium 137 mmol/L (137-145); Triglycerides 169 mg/dL (<150)
[2023-06-24 14:01] LABS: Digoxin 0.6 ng/mL (0.8-2.0)
[2023-06-24 14:04] LABS: Hemoglobin A1C 5.6 % (<5.7)
[2023-06-24 14:06] LABS: LDL Cholesterol Direct 106 mg/dL
[2023-06-27 06:18] LABS: CA 15-3 14 U/mL (<32)
== END 2023-06-24 10:40 | disposition home or self-care (01) ==
LOC: ANHLAB 10:41
PROVIDERS: PCP Family Medicine; Visit Provider Internal Medicine Hematology & Oncology
DX: R73.03 Prediabetes (principal); E03.9 Hypothyroidism, unspecified; E78.2 Mixed hyperlipidemia; I48.91 Unspecified atrial fibrillation; C50.411 Malignant neoplasm of upper-outer quadrant of right female breast; Z17.0 Estrogen receptor positive status [ER+]
CPT/HCPCS: 36415; 80053; 80061; 80162; 83036; 84443; 85025; 86300

== ENCOUNTER 2023-08-12 10:57 | Outpatient (CLI) | payer MEDICARE, OTHER, SELFPAY ==
[2023-08-15 01:10] LABS: CA-125 16 U/mL (<35)
== END 2023-08-12 10:58 | disposition home or self-care (01) ==
PROVIDERS: PCP Family Medicine
DX: C54.1 Malignant neoplasm of endometrium (principal)
CPT/HCPCS: 36415; 86304

== ENCOUNTER 2023-09-30 09:12 | Outpatient (CLI) | payer MEDICARE, OTHER, SELFPAY ==
--- NOTE | ~2023-09-30 | MR_ITS ---
EXAMINATION: MR lumbar spine wo con DATE: 09/30/2023 09:47 INDICATION: Radiculopathy, lumbar region. Low back pain. TECHNIQUE: Magnetic resonance imaging (MRI) of the lumbar spine was performed without intravenous con trast. Sequences included sagittal T2-weighted FSE, sagittal T2-weighted FS FSE, sagittal T1-weighted FSE, and axial T2-weighted FSE. COMPARISON: Lumbar spine radiographs 06/05/2021 FINDINGS: There is 14 degrees dextroscoliosis of thoracolumbar spine. There is 3 mm retrolisthesis of L1 on L2 and L2 on L3 and 3 mm anterolisthesis of L3 on L4 and L4 on L5. There is mild chronic anter ior wedging of T11 vertebral body. There is moderately decreased disc height at T12-L1, severely decr eased disc height at L1-L2 and L2-L3, moderately decreased disc height at L3-L4, and severely decreas ed disc height at L4-L5 and L5-S1. The distal spinal cord signal intensity is normal. The conus medul brittany is at L1. The following disc levels are specifically discussed: L1-L2: The disc is bulging with superimposed left subarticular and foraminal zone extrusion There is moderate bilateral facet joint osteoarthritis. There is mild right and moderate left neural foraminal stenosis. There is mild central canal stenosis. There is severe stenosis of left lateral recess. L2-L3: The disc is bulging and has an annular fissure. There is severe bilateral facet joint osteoart hritis. There is mild right and moderate left neural foraminal stenosis. There is severe central gissell l stenosis. L3-L4: The disc is bulging and has an annular fissure. There is severe bilateral facet joint osteoart hritis. There is mild right and moderate left neural foraminal stenosis. There is severe central gissell l stenosis. L4-L5: The disc is bulging is an annular fissure. There is severe bilateral facet joint osteoarthriti s. There is mild bilateral neural foraminal stenosis. There is severe central canal stenosis. L5-S1: The disc is bulging. There is severe bilateral facet joint osteoarthritis. There is mild right and moderate left neural foraminal stenosis. There is mild central canal stenosis. There is moderate stenosis of left lateral recess. IMPRESSION: 1. Severe lumbar spondylosis. 2. Thoracolumbar dextroscoliosis. Reviewed, dictated and finalized at location A.
== END 2023-09-30 09:13 ==
PROVIDERS: PCP Family Medicine; Visit Provider Family Medicine
DX: M47.26 Other spondylosis with radiculopathy, lumbar region (principal)
CPT/HCPCS: 72148

== ENCOUNTER 2023-12-26 10:22 | Outpatient (CLI) | payer MEDICARE, OTHER, SELFPAY ==
[2023-12-26 11:11] LABS: Basophils Absolute Auto 0.1 K/mm3 (0.0-0.1); Basophils Percent Auto 1.3 % (0.2-1.2); Eosinophils Absolute Auto 0.2 K/mm3 (0-0.3); Eosinophils Percent Auto 3.4 % (0-4.4); Hematocrit 39.7 % (37.0-47.0); Hemoglobin 12.6 g/dL (12.0-15.0); Immature Granulocyte Absolute 0.01 K/mm3 (0.00-0.031); Immature Granulocyte Percent A 0.2 % (0-0.5); Lymphocytes Absolute Auto 0.94 K/mm3 (0.9-3.2); Mean Corpuscular HGB Conc 31.7 g/dl (32-36); Mean Corpuscular Hemoglobin 32.1 pg (26-34); Mean Corpuscular Volume 101.3 fl (80-100); Mean Platelet Volume 11.1 fl (7.4-10.4); Monocytes Absolute Auto 0.6 K/mm3 (0.1-0.6); Monocytes Percent Auto 11.6 % (2.6-8.5); Neutrophils Absolute Auto 3.7 K/mm3 (1.3-6.7); Neutrophils Percent Auto 66.5 % (45.5-73.1); Platelet Count Result 259 k/mm3 (150-375); Red Blood Count 3.92 M/mm3 (4.2-5.4); Red Cell Distribution Width 13.8 % (11.5-14.5); White Blood Count 5.5 K/mm3 (4.5-10.0)
[2023-12-26 12:41] LABS: Alanine Aminotransferase 22 U/L (6-35); Albumin Level 4.2 g/dL (3.5-5.1); Alkaline Phosphatase 99 U/L (38-126); Anion Gap 9 mmol/L (4-12); Aspartate Amino Transferase 33 U/L (14-36); Bilirubin,Total 0.7 mg/dL (0.2-1.3); Blood Urea Nitrogen 22 mg/dL (7-17); Calcium 9.4 mg/dL (8.4-10.2); Carbon Dioxide 31 mmol/L (22-30); Chloride 98 mmol/L (98-107); Cholesterol 169 mg/dL (0-200); Estimated Glomerular Filt Rate > 60; Glucose 90 mg/dL (65-110); HDL Direct 39 mg/dL; Potassium 4.3 mmol/L (3.4-5.0); Sodium 138 mmol/L (137-145); Triglycerides 147 mg/dL (<150)
[2023-12-26 12:52] LABS: LDL Cholesterol Direct 92 mg/dL
[2023-12-26 13:04] LABS: Digoxin 0.6 ng/mL (0.8-2.0)
[2023-12-26 13:06] LABS: Hemoglobin A1C 5.6 % (<5.7)
[2023-12-27 14:09] LABS: CA 15-3 14 U/mL (<32)
== END 2023-12-26 10:23 | disposition home or self-care (01) ==
LOC: ANHLAB 10:24
PROVIDERS: PCP Family Medicine; Visit Provider Internal Medicine Hematology & Oncology
DX: E03.9 Hypothyroidism, unspecified (principal); Z00.00 Encounter for general adult medical examination without abnormal findings; E78.2 Mixed hyperlipidemia; R73.03 Prediabetes; Z51.81 Encounter for therapeutic drug level monitoring; Z79.899 Other long term (current) drug therapy; I48.0 Paroxysmal atrial fibrillation; C50.411 Malignant neoplasm of upper-outer quadrant of right female breast; Z17.0 Estrogen receptor positive status [ER+]
CPT/HCPCS: 36415; 80053; 80061; 80162; 83036; 84443; 85025; 86300

== ENCOUNTER 2024-01-06 07:59 | Outpatient (CLI) | payer MEDICARE, OTHER, SELFPAY ==
--- NOTE | ~2024-01-06 | CT_ITS ---
EXAMINATION: CT lumbar spine wo con DATE: 01/06/2024 08:26 INDICATION: Spinal stenosis of lumbar region. TECHNIQUE: Computed tomography (CT) of the lumbar spine was performed without intravenous contrast. A utomated exposure control and iterative reconstruction technique were employed. The dose-length produ ct was 723.39 mGy-cm. COMPARISON: Lumbar spine MRI 09/30/2023 FINDINGS: There is 8 degrees dextrocurvature of lumbar spine. There is 3 mm retrolisthesis of L1 on L 2, 3 mm anterolisthesis of L3 on L4 and L4 on L5, and 3 mm retrolisthesis of L5 on S1. There is mild chronic anterior wedging of L1 vertebral body. There is severely decreased disc height from T12-L1 th rough L2-L3, moderately decreased disc height at L3-L4, and severely decreased disc height at L4-L5 a nd L5-S1. The following disc levels are specifically discussed: L1-L2: The disc is bulging. There is severe bilateral facet joint osteoarthritis. There is mild right and moderate left neural foraminal stenosis. There is mild central canal stenosis. L2-L3: The disc is bulging. There is severe bilateral facet joint osteoarthritis. There is moderate b ilateral neural foraminal stenosis. There is moderate central canal stenosis. L3-L4: The disc is bulging. There is severe bilateral facet joint osteoarthritis. There is moderate b ilateral neural foraminal stenosis. There is severe central canal stenosis. L4-L5: The disc is bulging. There is severe bilateral facet joint osteoarthritis. There is moderate b ilateral neural foraminal stenosis. There is severe central canal stenosis. L5-S1: The disc is bulging. There is severe bilateral facet joint osteoarthritis. There is moderate b ilateral neural foraminal stenosis. There is mild central canal stenosis. IMPRESSION: 1. Severe lumbar spondylosis, stable from 09/30/2023. Reviewed, dictated and finalized at location A.
== END 2024-01-06 08:00 ==
LOC: MICIMG 08:01
PROVIDERS: PCP Family Medicine
DX: M48.062 Spinal stenosis, lumbar region with neurogenic claudication (principal); M47.896 Other spondylosis, lumbar region
CPT/HCPCS: 72131

== ENCOUNTER 2024-01-09 07:38 | Outpatient (CLI) | payer MEDICARE, OTHER, SELFPAY ==
--- NOTE | ~2024-01-09 | MR_ITS ---
MR cervical spine wo con Ordering provider: Clement Calloway History: 78 years Female with . 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 Comparison: The Technique: MRI cervical spine without contrast. FINDINGS: CERVICAL SPINAL CORD/CRANIAL CERVICAL JUNCTION: Normal in signal and caliber. Possible hemangioma in T3. CERVICAL VERTEBRAL BODIES: Normal height and alignment. Normal marrow signal. DISK SPACES: Narrowing of the disc C5-C6 and C6-C7.. Fusion of the left facet joints at the level of C4-C5. C2-C3: No stenosis. C3-C4: No stenosis. osteophytes formations with bilateral narrowing of the foramina and with nerve ro ot compression. C4-C5: No stenosis. osteophytes formations with bilateral narrowing of the foramina and with nerve ro ot compression. C5-C6: Moderate spinal canal stenosis secondary to broad based disc bulge. bilateral narrowing of th e foramina and with nerve root compression. C6-C7: Moderate spinal canal stenosis secondary to broad based disc bulge. osteophytes formations wi th bilateral narrowing of the foramina and with nerve root compression. C7-T1: No stenosis. VISUALIZED PARASPINOUS SOFT TISSUES: Normal. IMPRESSION: 1. No acute osseous abnormality. 2. Multilevel spinal canal stenosis, intervertebral foraminal narrowing and nerve root compression. Reviewed, dictated and finalized at location A. IMPRESSION: 1. No acute osseous abnormality. 2. Multilevel spinal canal stenosis, intervertebral foraminal narrowing and ne rve root compression.
--- NOTE | ~2024-01-09 | MR_ITS ---
Procedure: MR thoracic spine wo con Ordering provider: Dominik Ramirez History: . 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 Comparison: None. Technique: MRI thoracic spine without contrast. FINDINGS: SPINAL CORD: Normal. VERTEBRAL BODIES: Normal height and alignment. No compression fracture. Normal marrow signal. Multipl e T1 and T2 bright signal areas suggestive of Small hemangiomas seen in T3, T4, T6, T8, T9 and L1. DISK SPACES: Slight narrowing at the level of T2-T3. Disc bulge at the level of T2-T3. No significant intervertebral foraminal narrowing. Mild spinal gissell l stenosis seen. Facet joint disease seen at multiple levels with maximum changes seen bilaterally at the level of T12 -L1. PARASPINOUS SOFT TISSUES: Normal. IMPRESSION: No compression fracture. Mild spinal canal stenosis at the level of T2-T3. Reviewed, dictated and finalized at location A.
== END 2024-01-09 07:39 ==
LOC: MICIMG 07:40
PROVIDERS: PCP Family Medicine
DX: M48.062 Spinal stenosis, lumbar region with neurogenic claudication (principal)
CPT/HCPCS: 72141; 72146

== ENCOUNTER 2024-02-27 09:39 | Outpatient (CLI) | payer MEDICARE, OTHER, SELFPAY ==
--- NOTE | ~2024-02-27 | MM_ITS ---
EXAMINATION: MM screening [facility] BI w prem HISTORY: Screening TECHNIQUE: Craniocaudal and mediolateral oblique 3-D tomosynthesis images were obtained and synthetic 2-D images were generated. CAD analysis was submitted and interpreted. COMPARISON: Comparison to multiple prior studies sequentially, with oldest reviewed study dated 03/28. BREAST PARENCHYMAL COMPOSITION: Not dense: There are scattered areas of fibroglandular density. FINDINGS: There are lumpectomy changes in the right breast with developing areas of fat necrosis cent ered in the upper outer quadrant. There is no evidence of suspicious mass, calcification, or architec tural distortion to suggest malignancy in either breast. There has been no suspicious interval change . IMPRESSION: 1. No mammographic evidence of malignancy. 2. Recommend routine screening mammography in one year. BI-RADS Category 2: Benign finding(s). Reviewed, dictated and finalized at location B.
== END 2024-02-27 09:40 | disposition home or self-care (01) ==
LOC: ANHIMG 09:40
PROVIDERS: PCP Family Medicine; Visit Provider Internal Medicine Hematology & Oncology
DX: Z12.31 Encounter for screening mammogram for malignant neoplasm of breast (principal)
CPT/HCPCS: 77063; 77067

== ENCOUNTER 2024-12-29 10:27 | Outpatient (CLI) | payer MEDICARE, OTHER, SELFPAY ==
[2024-12-29 10:42] LABS: Hematocrit 41.4 % (37.0-47.0); Hemoglobin 13.7 g/dL (12.0-15.0); Immature Granulocyte Percent A 0.2 % (0-0.5); Lymphocytes Absolute Auto 0.92 K/mm3 (0.9-3.2); Mean Corpuscular HGB Conc 33.1 g/dl (32-36); Mean Corpuscular Hemoglobin 31.3 pg (26-34); Mean Corpuscular Volume 94.5 fl (80-100); Nucleated Red Blood Cells Absolute Auto 0.000 K/mm3 (0.0-0.012); Nucleated Red Blood Cells Perc 0.0 % (0.0-0.2); Platelet Count Result 225 k/mm3 (150-375); Red Blood Count 4.38 M/mm3 (4.2-5.4); White Blood Count 4.7 K/mm3 (4.5-10.0)
--- OUTSIDE RECORDS SUMMARY | 2024-12-29 10:53 | XMS_ITS | Clinical Summary ---
Author Organization [facility] [address] Address [address] [place] [address] Care Team Providers Care Paper Final Inspector Name Role Phone Celeste Hernandez MD Primary Care Provider Allergies No known active allergies Medications levothyroxine sodium (TIROSINT) 112 mcg capsule Take 1 capsule (112 mcg total) by mouth communication equipment repairer before breakfast Active anastrozole (ARIMIDEX) 1 mg tablet Take 1 tablet (1 mg total) by mouth nightly Active potassium chloride ER 10 mEq CR tablet Take 1 tablet/capsul e (10 mEq total) by mouth 2 (two) times a week Take 1 tablet by mouth on Saturday and 08/13/19 21 Active gabapentin (NEURONTIN) 300 mg capsuleIndicatio ns:Spinal stenosis of lumbar region with neurogenic claudication Take 1 capsule (300 mg total) by mouth 3 (three) times a day 90 capsule 11 12/17/19 24 Active calcium carbonate-vitami n D3 1500 mg (600 mg elemental) -200 units per tabletIndication s:Prevention of Vitamin D Deficiency Take 1 tablet by mouth 2 (two) times a day Active multivit-min/iro n/FA/vit K/lut (CENTRUM SILVER WOMEN ORAL) Take 1 tablet by mouth communication equipment repairer before breakfast Active acetaminophen 500 mg capsuleIndicatio ns:Pain Take 2 capsules (1,000 mg total) by mouth every 6 (six) hours as needed for mild pain (pain scale 1-4) Active Xarelto 20 mg tablet TAKE 1 TABLET DAILY 90 tablet 3 02/25/20 24 Active furosemide (LASIX) 20 mg tablet TAKE 1 TABLET DAILY 90 tablet 3 06/08/19 25 Active metoprolol XL (TOPROL-XL) 50 mg extended release tablet TAKE 2 TABLETS (100 MG) DAILY 180 tablet 1 12/08/19 25 Active metoprolol XL (TOPROL-XL) 50 mg extended release tablet TAKE 2 TABLETS (100 MG) DAILY 180 tablet 3 12/11/19 24 025 Discontinued Active Problems Problem Noted Date Diagnosed Date Lumbar stenosis with neurogenic claudication Spinal stenosis of lumbar re gion with neurogenic claudication 12/17/2023 Other persistent atrial fibrillation 06/02/2019 Encounters Date Type Department Care Team Description 11/06/2024 3:00 PM CDT Office Visit [facility] Neurosurgery [address] [place] [address] Medical Office Building [address] [place] [address] Balta Duke PA Lumbar stenosis with neurogenic claudication (Primary Dx) 11/06/2024 Telephone [facility] Neurosurgery [address] [place] [address] Medical Office Building [address] [place] [address] Balta Duke PA from Last 3 Months Immunizations Immunization Administration Dates Next Due Influenza, Quadrivalent, Spl it, Preservative Free, Intramuscular 03/30/2013 Influenza, Trivalent, High D ose, Split, Preservative Free, Intramuscular 03/10/2018,06/21/2017 Influenza, Trivalent, IM (MDV) 03/24/2019 Pneumococcal Conjugate PCV 13 03/13/2016 Pneumococcal Polysaccharide PPV23 03/10/2018 ZOSTER LIVE 03/30/2013 Surgical History Surgery Date Site/Laterality Comments GALLBLADDER SURGERY KNEE SURGERY Bilateral BREAST SURGERY 12/28/2019 CHOLECYSTECTOMY 04/26/1987 JOINT REPLACEMENT left knee 2009; right knee 2011 CATARACT EXTRACTION right eye 01/16/21 BREAST BIOPSY 12/03/2019 Right SPINE SURGERY 01/26/2024 - 02/24/2024 Medical History Medical History Date Comments Atrial fibrillation (HCC) Hypothyroidism Cancer (HCC) 12/03/2019 Cataract surgery on right eye 01/16/21 Arthritis Heart disease Atrial Fibrillation 04/2019 PONV (postoperative nausea a nd vomiting) Now they put a little miracle in there and no more issues Family History Medical History Relation Name Comments Cancer Brother 2 Hemant Byers Heart attack Brother 2 Hemant Byers Arthritis Mother Giselle Byers Kidney disease Mother Giselle Byers Malmorgan Hyperthermia Neg Hx Pseudochol deficiency Neg Hx Relation Name Status Comments Brother 1 Alive pacer, bypass Brother 2 Hemant Byers Father (Age 79) cancer Mother Giselle Byers Social History Tobacco Use Types Packs/Day Years Used Date Smoking Tobacco: Never Passive Smoke Exposure: Past Smokeless Tobacco: Never Tobacco Cessation:Counseling Given: Not Answered Alcohol Use Standard Drinks/Week Comments Yes 0 (1 standard drink = 0.6 oz pur e alcohol) occasionally AUDIT-C Answer Date Recorded Q1: How often do you have a drink containing alc ohol? Monthly or less 02/07/2024 Q2: How many drinks containi ng alcohol do you have on a typical day when you are drinking? 1 or 2 02/07/2024 Q3: How often do you have si x or more drinks on one occasion? Never 02/07/2024 Personal Safety Answer Date Recorded Have you ever been in or are you currently in a harmful physical or emotional relationship or is someone making you feel afraid or unsafe? Denies 02/07/2024 Comments No Sex and Gender Information Value Date Recorded Sex Assigned at Not on file Legal Sex Female 11:45 AM VACCINES SOLUTIONS SPECIALIST Gender Identity Female 05/03/2020 12:56 PM VACCINES SOLUTIONS SPECIALIST Sexual Orientation Straight 05/03/2020 12 :56 PM VACCINES SOLUTIONS SPECIALIST Obstetrics History Last Filed Vital Signs Vital Sign Reading Time Taken Comments Blood Pressure 118/66 07/24/2024 10:49 AM VACCINES SOLUTIONS SPECIALIST Pulse 44 07/24/2024 10:49 AM VACCINES SOLUTIONS SPECIALIST Temperature 36.6 C (97.9 F) 02/09/2024 7:33 AM CDT Respiratory Rate 16 02/09/2024 5:05 AM CDT Oxygen Saturation 96% 07/24/2024 10:49 AM VACCINES SOLUTIONS SPECIALIST Inhaled Oxygen Concentration - - Weight 83.9 kg (185 lb) 11/06/2024 2:58 PM CDT Height 156.2 cm (5' 1.5) 07/24/2024 10:49 AM CS T Body Mass Index 34.39 07/24/2024 10:49 AM VACCINES SOLUTIONS SPECIALIST Plan of Treatment Health Maintenance Due Date Last Done Comments Depression Screening 1945 Hepatitis C Screening 1945 DTaP/Tdap/Td Vaccine (1 - Tdap) 1956 Hepatitis B Screening 1963 Well Visit 65+ 2010 Zoster Vaccine (1 of 2) 05/25/2013 03/30/2013 Osteoporosis Screening-Bone Density Scan 12/23/2022 12/23/2020, 12/13/2020 Influenza Vaccine (#1) 2025 9, 03/10/2018, 06/21/2017, Additional history exists Fall Risk Assessment 02/08/2025 02/09/2024 Pneumococcal vaccine 65+ Completed 03/10/2018, 02/24 Insurance MEDICARE [facility]AN MEDICARE [facility]AN MEDICARE [facility] [place] [id number] Advance Directives For more information, please contact: [phone] Documents on File Type Date Recorded Patient Ham Stringer Expl anation ADVANCE DIRECTIVE 01/28/2024 3:52 PM LIVING WILL * Full Code (Latest Code Status on File) Date Activated Date Inactivated Comments 02/07/2024 7:42 PM 02/09/2024 4:31 PM Care Teams Paper Final Inspector Relationship Specialty Start Date End Date Celeste Hernandez MD PCP - General Family Medicine 04/26/19
--- OUTSIDE RECORDS SUMMARY | 2024-12-29 10:53 | XMS_ITS | Encounter Summary ---
Author Organization [facility] Address [address] [place] [address] Care Team Providers Care Marriage And Family Teacher Name Role Phone Celeste Hernandez MD Primary Care Provider [phone] Encounter Details Date Type Department Care Team (Late st Contact Info) Description 01/21/2020 Chart Note [facility] Radiation Therapy [address] [place] [address] [place] [address] [place] [address] Social History Tobacco Use Types Packs/Day Years Used Date Smoking Tobacco: Never Smokeless Tobacco: Never Alcohol Use Standard Drinks/Week Comments Yes 0 (1 standard drink = 0.6 oz pur e alcohol) moderate Comments No Sex and Gender Information Value Date Recorded Sex Assigned at Not on file Legal Sex Female 1:57 PM CDT Gender Identity Not on file Sexual Orientation Not on file COVID-19 Exposure Response Date Recorded In the last month, have you been in contact with someone who was confirmed or suspected to have Coronavirus / COVID-19? No / Unsure 01/19/2020 9:16 AM CDT documented as of this encounter Plan of Treatment Upcoming Encounters Date Type Department Care Team (Late st Contact Info) Description 01/05/2025 10:15 AM CDT Office Visit [facility] Oncology and Hematology - [place] [address] F[address] [address] Ras Ivey MD [address] [facility] [address] [place] [phone] 04/20/2025 10:45 AM HUMANITIES COORDINATOR Office Visit [facility] Gynecologic Oncology [place] [address] [place] [address] [place] [address] Olivia Min DO [address] [place] [address] [place] [address] documented as of this encounter Visit Diagnoses Not on filedocumented in this encounter Care Teams Marriage And Family Teacher Relationship Specialty Start Date End Date Celeste Hernandez MD [address] [place] [address] PCP - General Family Practice 12/03/19 documented as of this encounter
--- OUTSIDE RECORDS SUMMARY | 2024-12-29 10:54 | XMS_ITS ---
Author Organization [facility] [place] Address [address] [place] [address] Phone Care Team Providers Care Supervisor Firearms Name Role Phone Celeste Hernandez MD Primary Care Provider [phone] Active Problems Patient Care Coordination No te Formatting of this note migh t be different from the original. Primary Care: Celeste Hernandez MD Referring Provider: Celeste Hernandez MD [address] [place] [address] Other: Problem Noted Date Diagnosed Date History of right breast cancer 12/18/2022 Endometrial/uterine adenocarcinoma 12/18/2022 Malignant neoplasm of upper- outer quadrant of right breast in female, estrogen receptor positive 12/11/2019 Abnormality of right breast on screening mammogr am 12/03/2019 Mass of upper outer quadrant of right breast 01/2020 Morbid obesity with body mass index of 40.0-49.9 12/03/2019 Current Treatment and Therapy Plans No current plan information found. Past Treatment and Therapy Plans No past plan information found. Lifetime Dose Tracking * Chemical Lifetime Dose Automatic Entry Manual Entr y Effective Dose 68.59 mSv 68.59 mSv 0 mSv Total DLP 4,419.46 DLP 4,419.46 DLP 0 DLP CTDIvol Max 55.67 mGy 55.67 mGy 0 mGy CTDIvol Min 18.55 mGy 18.55 mGy 0 mGy
--- OUTSIDE RECORDS SUMMARY | 2024-12-29 10:54 | XMS_ITS | Clinical Summary ---
Author Organization [facility] [place] Address [address] [place] [address] Phone Care Team Providers Care Laboratory Mechanic Helper Name Role Phone Celeste Hernandez MD Primary Care Provider [phone] Allergies No known active allergies Medications Levothyroxine 112 mcg Capsule Take 112 mcg by mouth daily before breakfast. Active rivaroxaban (XARELTO) 20 mg Tablet Take 20 mg by mouth daily. 0 Active potassium chloride (KLOR-CON) 10 mEq Extended Release tablet Take 1 tablet by mouth on Saturday and 1 Active metoprolol succinate (TOPROL XL) 50 mg Extended Release 24 hour tablet TAKE 2 TABLETS(100 MG) BY MOUTH DAILY 1 Active furosemide (LASIX) 20 mg tablet Take 1 Tablet by mouth daily. 3 Active acetaminophen (TYLENOL) 500 mg tablet Take 1,000 mg by mouth every 6 hours as needed. Active MULTIVITAMIN ORAL Take by mouth. Active calcium as carbonate (CALTRATE) 1,500 mg (600 mg elemental) Tablet Take by mouth. Active anastrozole (ARIMIDEX) 1 mg tabletIndicatio ns:Malignant neoplasm of upper-outer quadrant of right breast in female, estrogen receptor positive (CMS/HCC) TAKE 1 TABLET DAILY 90 Tablet 3 5 Active gabapentin (NEURONTIN) 300 mg capsule Take 300 mg by mouth 3 times daily. 4 12/17/19 25 Active Problems Patient Care Coordination No te Formatting of this note migh t be different from the original. Primary Care: Celeste Hernandez MD Referring Provider: Celeste Hernandez MD [address] [place] [address] Other: Problem Noted Date Diagnosed Date History of right breast cancer 12/18/2022 Endometrial/uterine adenocarcinoma 12/18/2022 Malignant neoplasm of upper- outer quadrant of right breast in female, estrogen receptor positive 12/11/2019 Abnormality of right breast on screening mammogr am 12/03/2019 Mass of upper outer quadrant of right breast 01/2020 Morbid obesity with body mass index of 40.0-49.9 12/03/2019 Encounters Date Type Department Care Team Description 12/15/2024 11:30 AM CDT Office Visit [facility] Gynecologic Oncology [place] [address] [facility] [address] [place] [address] Olivia Min DO History of endometrial cancer (Primary Dx) 12/09/2024 External Device Data STL ABSTRACTION Provider, Abstract 12/08/2024 External Device Data STL ABSTRACTION Provider, Abstract from Last 3 Months Immunizations Immunization Administration Dates Next Due Influenza Seasonal Unspecified Formulation IM Family History Medical History Relation Name Comments Prostate Cancer Brother Breast Cancer Other niece Ovarian Cancer Neg Hx Relation Name Status Comments Brother Alive Other niece Alive Social History Tobacco Use Types Packs/Day Years Used Date Smoking Tobacco: Never Smokeless Tobacco: Never Tobacco Cessation:Counseling Given: Not Answered Alcohol Use Standard Drinks/Week Comments Yes 0 (1 standard drink = 0.6 oz pur e alcohol) moderate Comments No Sex and Gender Information Value Date Recorded Sex Assigned at Not on file Legal Sex Female 1:57 PM CDT Gender Identity Not on file Sexual Orientation Not on file Last Filed Vital Signs Vital Sign Reading Time Taken Comments Blood Pressure 126/72 12/15/2024 11:31 AM CDT Pulse 120 12/15/2024 11:31 AM CDT Temperature 36.6 C (97.8 F) 12/15/2024 11:31 AM CDT Respiratory Rate 15 07/06/2024 10:34 AM PENS AND PENCILS DIPPER Oxygen Saturation 90% 12/15/2024 11:31 AM CDT Inhaled Oxygen Concentration - - Weight 88.7 kg (195 lb 9.6 oz) 12/15/2024 11:31 AM CDT Height 154.9 cm (5' 1) 12/15/2024 11:31 AM CDT Body Mass Index 36.96 12/15/2024 11:31 AM CDT Plan of Treatment Upcoming Encounters Date Type Department Care Team (Late st Contact Info) Description 01/05/2025 10:15 AM CDT Office Visit [facility] Oncology and Hematology - [place] [address] [facility] [address] [place] [address] Ras Ivey MD [address] [facility] [address] [place] [address] 04/20/2025 10:45 AM PENS AND PENCILS DIPPER Office Visit [facility] Gynecologic Oncology [place] [address] [facility] [address] [place] [address] Olivia Min DO [address] [facility] [address] [place] [address] Health Maintenance Due Date Last Done Comments DTAP/TDAP/TD VACCINES (1 - Tdap) 1964 Traditional Medicare (ACO) A nnual Wellness Visit 1964 ZOSTER VACCINE (1 of 2) 05/25/2013 03/30/2013 RSV VACCINE (60+ or ) (1 - 1-dose 75+ series) 2020 INFLUENZA VACCINE (#1) 2024 9, 03/10/2018, 06/21/2017, Additional history exists OSTEOPOROSIS SCREENING 12/11/2027 3, 12/23/2020, 12/13/2020, Additional history exists PNEUMOCOCCAL VACCINE 50+ YEARS Completed 03/10/2018 , 03/13/2016 Medical Devices Implanted Type Area Associate Editor Device Identifier Shelf Expiration Date Model / Serial / Lot Laboratory Aide Clip Surgiclip Ii Jose M 9.75in [id number] - [id number] Implanted:Qty : 1 on 12/28/2019 by Maite Pierce MD at [facility] Clip Right: Axilla [employer] [id number] 07/24/2024 [id number] / / [id number] Hemostatic Surgicel 4x8in 1951 - [id number] Implanted:Qty : 1 on 12/28/2019 by Maite Pierce MD at [facility] Hemostatic Right: Axilla [employer] 03/26/20241951 / [id number] Knee Lens Bilateral : Eye Procedures Procedure Name Priority Date/Time Associated Diagnosis Comments XR DEXA BONE DENSITY AXIAL 1 OR MORE SITES Routine 12/23/2020 from Last 3 Months or Most Recently Relevant to Health Maintenance Results * XR DEXA BONE DENSITY AXIAL 1 OR MORE SITES (12/23/2020) Anatomical Region Laterality Modality Other us Abstract Provider DIAGNOSTIC IMAGING ORDERABLES Final Result from Last 3 Months or Most Recently Relevant to Health Maintenance Insurance 1952 [email or web address] [place] [id number] MEDICARE PART A AND B [facility] [place] [id number] [employer] MEDICARE PART A AND [place] [id number] Advance Directives For more information, please contact: [phone] * Full Code (Latest Code Status on File) Date Activated Date Inactivated Comments 01/14/2023 8:51 PM 01/20/2023 5:17 PM * Full Code Date Activated Date Inactivated Comments 12/28/2019 11:42 AM 12/28/2019 6:43 PM Care Teams Laboratory Mechanic Helper Relationship Specialty Start Date End Date Celeste Hernandez MD [address] [place] [id number] PCP - General Family Practice 12/03/19
--- OUTSIDE RECORDS SUMMARY | 2024-12-29 10:54 | XMS_ITS | Referral Summary ---
Author Organization [facility] [address] Address [address] [place] [address] Care Team Providers Care Manager Van Name Role Phone Celeset Hernandez MD Primary Care Provider [phone] Encounters Date Type Department Care Team Description 11/06/2024 Telephone [facility] Neurosurgery [address] [place] [address] [address] Balta Duke PA 11/06/2024 3:00 PM CDT Office Visit [facility] Neurosurgery [address] [place] [phone] Balta Duke PA Lumbar stenosis with neurogenic claudication (Primary Dx) from Last 3 Months Allergies No known active allergies Medications levothyroxine sodium (TIROSINT) 112 mcg capsule Take 1 capsule (112 mcg total) by mouth veterinary medical officer before breakfast Active anastrozole (ARIMIDEX) 1 mg [...] WOMEN ORAL) Take 1 tablet by mouth veterinary medical officer before breakfast Active acetaminophen 500 mg capsuleIndicatio [...] claudication 12/17/2023 Other persistent atrial fibrillation 06/02/2019 Immunizations Immunization Administration Dates Next Due Influenza, Quadrivalent, Spl it, Preservative Free, Intramuscular 03/30/2013 Influenza, Trivalent, High D ose, Split, Preservative Free, Intramuscular 03/10/2018,06/21/2017 Influenza, Trivalent, IM (MDV) 03/24/2019 Pneumococcal Conjugate PCV 13 03/13/2016 Pneumococcal Polysaccharide PPV23 03/10/2018 ZOSTER LIVE 03/30/2013 Social History Tobacco Use Types Packs/Day Years [...] on file Legal Sex Female 11:45 AM GLUING CREW LEADER Gender Identity Female 05/03/2020 12:56 PM GLUING CREW LEADER Sexual Orientation Straight 05/03/2020 12 :56 PM GLUING CREW LEADER Last Filed Vital Signs Vital Sign Reading Time Taken Comments Blood Pressure 118/66 07/24/2024 10:49 AM GLUING CREW LEADER Pulse 44 07/24/2024 10:49 AM GLUING CREW LEADER Temperature 36.6 C (97.9 F) 02/09/2024 7:33 AM CDT Respiratory Rate 16 02/09/2024 5:05 AM CDT Oxygen Saturation 96% 07/24/2024 10:49 AM GLUING CREW LEADER Inhaled Oxygen Concentration - - Weight 83.9 kg (185 lb) 11/06/2024 2:58 PM CDT Height 156.2 cm (5' 1.5) 07/24/2024 10:49 AM CS T Body Mass Index 34.39 07/24/2024 10:49 AM GLUING CREW LEADER Plan of Treatment Not on file Insurance MEDICARE [facility] SECONDARY Advance Directives For more information, please contact: [phone] Documents on File Type Date Recorded Patient Supervisor Waterproofing Expl anation ADVANCE DIRECTIVE 01/28/2024 3:52 PM LIVING WILL * Full Code (Latest Code Status on File) Date Activated Date Inactivated Comments 02/07/2024 7:42 PM 02/09/2024 4:31 PM Care Teams Manager Van Relationship Specialty Start Date End Date Celeste Hernandez MD PCP - General Family Medicine 04/26/19
[2024-12-29 11:55] LABS: Alanine Aminotransferase 23 U/L (6-35); Albumin Level 4.1 g/dL (3.5-5.1); Alkaline Phosphatase 122 U/L (38-126); Anion Gap 6 mmol/L (4-12); Aspartate Amino Transferase 41 U/L (14-36); Bilirubin,Total 0.9 mg/dL (0.2-1.3); Blood Urea Nitrogen 17 mg/dL (7-17); Calcium 9.6 mg/dL (8.4-10.2); Carbon Dioxide 31 mmol/L (22-30); Chloride 102 mmol/L (98-107); Estimated Glomerular Filt Rate > 60; Glucose 99 mg/dL (65-110); Potassium 4.3 mmol/L (3.4-5.0); Sodium 139 mmol/L (137-145); Total Protein 7.9 g/dL (6.3-8.2)
== END 2024-12-29 10:28 | disposition home or self-care (01) ==
LOC: ANHLAB 10:28
PROVIDERS: PCP Family Medicine; Visit Provider Internal Medicine Hematology & Oncology
DX: C50.411 Malignant neoplasm of upper-outer quadrant of right female breast (principal); Z17.0 Estrogen receptor positive status [ER+]
CPT/HCPCS: 36415; 80053; 85025; 86300

== ENCOUNTER 2025-02-15 09:56 | Outpatient (CLI) | payer MEDICARE, OTHER, SELFPAY ==
--- OUTSIDE RECORDS SUMMARY | 2025-02-15 11:01 | XMS_ITS ---
Author Organization [facility] [place] Address [address] [place] [address] Phone Care Team Providers Care Linux Solaris Administrator Name Role Phone Celeste Hernandez MD Primary Care Provider [phone] Active Problems Patient Care Coordination No te Formatting of this note migh t be different from the original. Primary Care: Celeste Hernandez MD Referring Provider: Celeste Hernandez MD [address] [place] [address] Other: Problem Noted Date Diagnosed Date History [...]
--- OUTSIDE RECORDS SUMMARY | 2025-02-15 11:01 | XMS_ITS | Clinical Summary ---
Author Organization [facility] [place] Address [address] [place] [address] Phone Care Team Providers Care Plate And Weld Inspector Name Role Phone Celeste Hernandez MD Primary Care Provider [phone] Allergies No known active allergies Medications Levothyroxine 112 mcg Capsule Take 112 mcg by mouth daily before breakfast. Active rivaroxaban (XARELTO) 20 mg Tablet Take 20 mg by mouth daily. 06/25/2019 Active potassium chloride (KLOR-CON) 10 mEq Extended Release tablet Take 1 tablet by mouth on Saturday and 08/12/2020 Active metoprolol succinate (TOPROL XL) 50 mg Extended Release 24 hour tablet TAKE 2 TABLETS(100 MG) BY MOUTH DAILY 10/26/2020 Active furosemide (LASIX) 20 mg tablet Take 1 Tablet by mouth daily. 07/04/2022 Active acetaminophen (TYLENOL) 500 mg tablet Take 1,000 mg by mouth every 6 hours as needed. Active MULTIVITAMIN ORAL Take by mouth. Active calcium as carbonate (CALTRATE) 1,500 mg (600 mg elemental) Tablet Take by mouth. Active anastrozole (ARIMIDEX) 1 mg tabletIndicatio ns:Malignant neoplasm of upper-outer quadrant of right breast in female, estrogen receptor positive (CMS/HCC) TAKE 1 TABLET DAILY 90 Tablet 3 08/10/2024 Active Active Problems Patient Care Coordination No te Formatting of this note migh t be different from the original. Primary Care: Celeste Hernandez MD Referring Provider: Celeste Hernandez MD [address] [place] [address] Other: Problem Noted Date Diagnosed Date History [...] Encounters Date Type Department Care Team Description 01/05/2025 10:15 AM CDT Office Visit [facility] Oncology and Hematology [facility] [address] [place] [address] Ras Ivey MD Malignant neoplasm of upper-outer quadrant of right breast in female, estrogen receptor positive (CMS/HCC) (Primary Dx); Visit for screening mammogram; Osteopenia of multiple sites 12/30/2024 Orders Only [facility] Oncology and [facility] [address] [place] [address] Ras Ivey MD 12/29/2024 External Device Data STL ABSTRACTION Provider, Abstract 12/29/2024 Orders Only [facility] Oncology and Hematology [facility] [address] [place] [address] Ras Ivey MD 12/15/2024 11:30 AM CDT Office Visit [facility] Gynecologic Oncology [place] [address] [place] [address] Olivia Min DO History of endometrial cancer [...] = 0.6 oz pur e alcohol) moderate Feeling Safe Answer Date Recorded Are you in a relationship wi th someone who hurts you emotionally and/or physically? No 12/15/2024 Food Insecurity Answer Date Recorded Social/Environmental Concerns No concerns Transportation Needs Answer Date Record ed Social/Environmental Concerns No concerns Housing Stability Answer Date Recorded Social/Environmental Concerns No concerns Utility Needs Answer Date Recorded Social/Environmental Concerns No concerns Comments No Sex and Gender Information Value Date Recorded Sex Assigned at Not on file Legal Sex Female 1:57 PM CDT Gender Identity Not on file Sexual Orientation Not on file Last Filed Vital Signs Vital Sign Reading Time Taken Comments Blood Pressure 104/69 01/05/2025 10:04 AM CDT Pulse 65 01/05/2025 10:04 AM CDT Temperature 36.3 C (97.3 F) 01/05/2025 10:04 AM CDT Respiratory Rate 15 07/06/2024 10:34 AM COMPUTER INSTALLER Oxygen Saturation 96% 01/05/2025 10:04 AM CDT Inhaled Oxygen Concentration - - Weight 88.5 kg (195 lb) 01/05/2025 10:04 AM CDT Height 154.9 cm (5' 1) 01/05/2025 10:04 AM CDT Body Mass Index 36.84 01/05/2025 10:04 AM CDT Plan of Treatment Upcoming Encounters Date Type Department Care Team (Late st Contact Info) Description 04/20/2025 10:45 AM COMPUTER INSTALLER Office Visit [facility] Gynecologic Oncology [place] [address] [facility] [email or web address] [address] [place] [address] Olivia Min, [address] [facility] [address] [place] [address] 07/22/2025 10:00 AM COMPUTER INSTALLER Office Visit [facility] Oncology and Hematology - [place] [address] [place] [address] Ras Ivey MD [address] [facility] [address] [place] [address] Health Maintenance Due Date Last Done Comments DTAP/TDAP/TD VACCINES (1 - Tdap) 1964 ZOSTER VACCINE (1 of 2) 05/25/2013 03/30/2013 RSV VACCINE (60+ or ) (1 - 1-dose 75+ series) 2020 INFLUENZA VACCINE (#1) 2024 9, 03/10/2018, 06/21/2017, Additional history exists OSTEOPOROSIS SCREENING 12/11/2027 3, 12/23/2020, 12/13/2020, Additional history exists PNEUMOCOCCAL VACCINE 50+ YEARS Completed 03/10/2018 , 03/13/2016 Medical Devices Implanted Type Area Network Solutions Architect Device Identifier Shelf Expiration Date Model / Serial / Lot Canvas Goods Fabricator Clip Surgiclip Ii Jose M 9.75in [id number] - [id number] Implanted:Qty : 1 on 12/28/2019 by Maite Pierce MD at [facility] Clip Right: Axilla [employer] [id number] 07/24/2024 [id number] / / [id number] Hemostatic Surgicel 4x8in 1951 - [id number] Implanted:Qty : 1 on 12/28/2019 by aMite Pierce MD at [facility] Hemostatic Right: Axilla [employer] 03/26/20241951 / 1951 / [id number] Knee Lens Bilateral : Eye Procedures Procedure Name Priority Date/Time Associated Diagnosis Comments COMPREHENSIVE METABOLIC PANEL Routine 12/29/2024 3:51 PM CDT CBC WITH AUTODIFFERENTIAL Routine 2024 12:52 PM CDT CHG CA 15 3 Routine 12/29/2024 12:43 PM CDT XR DEXA BONE DENSITY AXIAL 1 OR MORE SITES Routine 12/23/2020 from Last 3 Months or Most Recently Relevant to Health Maintenance Results * COMPREHENSIVE METABOLIC PANEL (12/29/2024 3:51 PM CDT) Blood Ras Ivey MD CHEMISTRY ORDERABLES Final Resu lt * CBC WITH AUTODIFFERENTIAL (12/29/2024 12:52 PM CDT) Blood us Ras Ivey MD HEMATOLOGY ORDERABLES Final Res ult * CHG CA 15 3 (12/29/2024 12:43 PM CDT) us Ras Ivey MD CHG - LABORATORY Final Result * XR DEXA BONE DENSITY AXIAL 1 OR MORE SITES (12/23/2020) Anatomical Region Laterality Modality Other us Abstract Provider DIAGNOSTIC IMAGING ORDERABLES Final Result from Last 3 Months or Most Recently Relevant to Health Maintenance Insurance MEDICARE PART A AND B [facility] [place] [id number] [address] [employer] MEDICARE PART A AND [place] [id number] Advance Directives For more information, please contact: [phone] * Full Code (Latest Code Status on File) Date Activated Date Inactivated Comments 01/14/2023 8:51 PM 01/20/2023 5:17 PM * Full Code Date Activated Date Inactivated Comments 12/28/2019 11:42 AM 12/28/2019 6:43 PM Care Teams Plate And Weld Inspector Relationship Specialty Start Date End Date Celeste Hernandez MD [address] [place] [address] PCP - General Family Practice 12/03/19
--- OUTSIDE RECORDS SUMMARY | 2025-02-15 11:01 | XMS_ITS | Encounter Summary ---
Author Organization [facility] Address [address] [place] [address] Care Team Providers Care Cistern Room Working Supervisor Name Role Phone Celeste Hernandez MD Primary Care Provider [phone] Encounter Details Date Type Department Care Team (Late st Contact Info) Description 01/21/2020 Chart Note [facility] Radiation Therapy [address] [place] [address] [place] [address] [place] [address] Social History Tobacco Use Types [...] st Contact Info) Description 04/20/2025 10:45 AM RESTROOMS OR LOUNGES MAID Office Visit [facility] Gynecologic Oncology [place] [address] [place] [address] Olivia Min DO [address] [facility] [address] [place] [address] 07/22/2025 10:00 AM RESTROOMS OR LOUNGES MAID Office Visit [facility] Oncology and Hematology - [place] [address] [facility] [address] [place] [address] Ras Ivey MD [address] [facility] [address] [place] [address] documented as of this encounter Visit Diagnoses Not on filedocumented in this encounter Care Teams Cistern Room Working Supervisor Relationship Specialty Start Date End Date Celeste Hernandez MD [address] [place] [address] PCP - General Family Practice 12/03/19 documented as of this encounter
--- OUTSIDE RECORDS SUMMARY | 2025-02-15 11:01 | XMS_ITS | Clinical Summary ---
Author Organization [facility] [address] Address [address] [place] [address] Care Team Providers Care General Expeditor Name Role Phone Celeste Hernandez MD Primary Care Provider [phone] Allergies No known active allergies Medications levothyroxine sodium (TIROSINT) 112 mcg capsule Take 1 capsule (112 mcg total) by mouth skiving machine operator before breakfast Active anastrozole (ARIMIDEX) 1 mg tablet Take 1 tablet (1 mg total) by mouth nightly Active potassium chloride ER 10 mEq CR tablet Take 1 tablet/capsule (10 mEq total) by mouth 2 (two) times a week Take 1 tablet by mouth on Saturday and 1 Active gabapentin (NEURONTIN) 300 mg capsuleIndication s:Spinal stenosis of lumbar region with neurogenic claudication Take 1 capsule (300 mg total) by mouth 3 (three) times a day 90 capsule 11 4 Active calcium carbonate-vitamin D3 1500 mg (600 mg elemental) -200 units per tabletIndications :Prevention of Vitamin D Deficiency Take 1 tablet by mouth 2 (two) times a day Active multivit-min/iron /FA/vit K/lut (CENTRUM SILVER WOMEN ORAL) Take 1 tablet by mouth skiving machine operator before breakfast Active acetaminophen 500 mg capsuleIndication s:Pain Take 2 capsules (1,000 mg total) by mouth every 6 (six) hours as needed for mild pain (pain scale 1-4) Active Xarelto 20 mg tablet TAKE 1 TABLET DAILY 90 tablet 3 4 Active furosemide (LASIX) 20 mg tablet TAKE 1 TABLET DAILY 90 tablet 3 5 Active metoprolol XL (TOPROL-XL) 50 mg extended release tablet TAKE 2 TABLETS (100 MG) DAILY 180 tablet 1 5 Active Active Problems Problem Noted Date Diagnosed Date Lumbar stenosis with neurogenic claudication Spinal stenosis of lumbar re gion with neurogenic claudication 12/17/2023 Other persistent atrial fibrillation 06/02/2019 Encounters Date Type Department Care Team Description 01/29/2025 11:00 AM CDT Office Visit [facility] Cardiology [address] [place] [address] Solitario Whitt MD Other persistent atrial fibrillation (Primary Dx) from Last 3 Months Immunizations Immunization Administration [...] on file Legal Sex Female 11:45 AM NUTRITION COORDINATOR Gender Identity Female 05/03/2020 12:56 PM NUTRITION COORDINATOR Sexual Orientation Straight 05/03/2020 12 :56 PM NUTRITION COORDINATOR Obstetrics History Last Filed Vital Signs Vital Sign Reading Time Taken Comments Blood Pressure 106/58 01/29/2025 10:43 AM CDT Pulse 63 01/29/2025 10:43 AM CDT Temperature 36.6 C (97.9 F) 02/09/2024 7:33 AM CDT Respiratory Rate 16 02/09/2024 5:05 AM CDT Oxygen Saturation 97% 01/29/2025 10:43 AM CDT Inhaled Oxygen Concentration - - Weight 89.4 kg (197 lb 3.2 oz) 01/29/2025 10:43 AM CDT Height 156.2 cm (5' 1.5) 01/29/2025 10:43 AM CD T Body Mass Index 36.66 01/29/2025 10:43 AM CDT Plan of Treatment Health Maintenance Due Date Last Done Comments Depression Screening 1945 Hepatitis C Screening 1945 DTaP/Tdap/Td Vaccine (1 - Tdap) 1956 Hepatitis B Screening 1963 Well Visit 65+ 2010 Zoster Vaccine (2 of 2) 10/29/2022 09/03/2022, 03/30 Osteoporosis Screening-Bone Density Scan 12/23/2022 12/23/2020, 12/13/2020 Influenza Vaccine (#1) 2025 , 05/01/2023, 03/20/2022, Additional history exists Fall Risk Assessment 02/08/2025 02/09/2024 Pneumococcal vaccine 65+ Completed 03/10/2018, 02/24 Breast Cancer Screening-Mammogram Discontinued 12/18/2022, 11/23/2021, 11/17/2020 Insurance MEDICARE [facility] H[facility]PPO Address: [address] [place] [address] MEDICARE [facility]AN [address] [place] [id number] MEDICARE [facility] HE[facility]AN SECONDARY Advance Directives For more information, please contact: [phone] Documents on File Type Date Recorded Patient Spring Former Hand Expl anation ADVANCE DIRECTIVE 01/28/2024 3:52 PM LIVING WILL * Full Code (Latest Code Status on File) Date Activated Date Inactivated Comments 02/07/2024 7:42 PM 02/09/2024 4:31 PM Care Teams General Expeditor Relationship Specialty Start Date End Date Celeste Hernandez MD PCP - General Family Medicine 04/26/19
[2025-02-15 12:21] LABS: Alanine Aminotransferase 19 U/L (6-35); Albumin Level 3.8 g/dL (3.5-5.1); Alkaline Phosphatase 120 U/L (38-126); Anion Gap 6 mmol/L (4-12); Aspartate Amino Transferase 34 U/L (14-36); Bilirubin,Total 1.0 mg/dL (0.2-1.3); Blood Urea Nitrogen 21 mg/dL (7-17); Calcium 9.2 mg/dL (8.4-10.2); Carbon Dioxide 31 mmol/L (22-30); Chloride 101 mmol/L (98-107); Cholesterol 167 mg/dL (0-200); Estimated Glomerular Filt Rate > 60; Glucose 95 mg/dL (65-110); HDL Direct 42 mg/dL; Potassium 4.2 mmol/L (3.4-5.0); Sodium 138 mmol/L (137-145); Total Protein 7.6 g/dL (6.3-8.2); Triglycerides 94 mg/dL (<150)
[2025-02-15 12:41] LABS: Hemoglobin A1C 5.5 % (<5.7)
[2025-02-15 12:49] LABS: Thyroid Stimulating Hormone Reflex 2.630 uIU/mL (0.465-4.68)
== END 2025-02-15 09:57 | disposition home or self-care (01) ==
LOC: ANHLAB 09:57
PROVIDERS: PCP Family Medicine; Visit Provider Family Medicine
DX: E78.2 Mixed hyperlipidemia (principal); R73.03 Prediabetes; E03.9 Hypothyroidism, unspecified
CPT/HCPCS: 36415; 80053; 80061; 83036; 84443